=== PATIENT | female | born 1965 | race Caucasian/White ===

== ENCOUNTER 2017-11-05 18:48 | Emergency (ER) | payer OTHER ==
[~2017-11-05] VITALS: Ht 160 cm; Wt 106.6 kg
[~2017-11-05 18:48] MED LIST: AZAT50 PO; AZIT500 PO; Aspir 8181 MG PO; BASAGLAR K100 UNIT/1 SC; CHOL10002 PO; Colace100 MG PO; HYDPAM25 PO; Humalog100 UNIT/1 SC; INSDET100; LIRA0.6P SC; LISI5 PO; MAGOXI400 PO; METO50ER PO; PRED20 PO; PROM25 PO; Percocet 5-3251 EACH PO; Protonix40 MG PO; ROBITUSSIN COU237 ML PO; ROXICODONE5 MG PO; SERT100 PO; TACR1 PO; TEMA15 PO
[2017-11-05 22:15] LABS: BASOPHILS ABSOLUTE AUTO 0.02 K/mm3 (0.00-0.23); BASOPHILS PERCENT AUTO 0 % (0-2); EOSINOPHILS ABSOLUTE AUTO 0.05 K/mm3 (0.00-0.68); EOSINOPHILS PERCENT AUTO 1 % (0-6); Hematocrit 40.3 % (33.0-51.0); Hemoglobin 13.2 g/dL (11.5-16.0); IMMATURE GRAN ABSOLUTE AUTO 0.04 K/mm3 (0.00-0.10); IMMATURE GRAN PERCENT AUTO 1 % (0-1); LYMPHOCYTES ABSOLUTE AUTO 0.82 K/mm3 (0.84-5.20); LYMPHOCYTES PERCENT AUTO 10 % (21-46); MONOCYTES ABSOLUTE AUTO 0.39 K/mm3 (0.16-1.47); MONOCYTES PERCENT AUTO 5 % (4-13); Mean Corpuscular HGB 33.8 pg (26.0-34.0); Mean Corpuscular HGB Conc 32.8 g/dL (31.5-36.5); Mean Corpuscular Volume 103 fL (80-100); NEUTROPHILS PERCENT AUTO 84 % (41-73); Platelet Count 253 K/mm3 (150-400); RDW Coefficient Variation 15.2 % (11.7-14.2); RDW Standard Deviation 57.7 fL (35.1-46.3); White Blood Cell Count 8.22 K/mm3 (4.00-11.30)
[2017-11-05 22:34] LABS: Albumin, Blood 3.7 g/dL (3.4-5.0); Albumin/Globulin Ratio 0.8 (0.8-1.8); Bilirubin, Total 0.3 mg/dL (0.1-1.0); Bun/Creatinine Ratio 31.2 (12.0-20.0); Calcium, Blood 9.3 mg/dL (8.5-10.1); Creatinine, Blood 1.12 mg/dL (0.40-1.00); Globulin, Blood 4.4 g/dL (2.2-4.0); Potassium, Blood 4.5 mmol/L (3.5-5.5); Total Protein, Blood 8.1 g/dL (6.4-8.2)
[2017-11-05] MEDS ORDERED: Roxicodone5 MG PO (23:06)
[2017-11-05] MEDS ORDERED: Robaxin-750750 MG PO (23:06)
== END 2017-11-05 23:37 | disposition home or self-care (01) ==
LOC: ER 18:48
PROVIDERS: Emergency Medicine
DX: S16.1XXA Strain of muscle, fascia and tendon at neck level, initial encounter (principal); R10.9 Unspecified abdominal pain; E11.22 Type 2 diabetes mellitus with diabetic chronic kidney disease; E11.65 Type 2 diabetes mellitus with hyperglycemia; I12.9 Hypertensive chronic kidney disease with stage 1 through stage 4 chronic kidney disease, or unspecified chronic kidney disease; N18.9 Chronic kidney disease, unspecified; Z88.8 Allergy status to other drugs, medicaments and biological substances; E04.1 Nontoxic single thyroid nodule; Z88.6 Allergy status to analgesic agent; Z79.899 Other long term (current) drug therapy; Z79.4 Long term (current) use of insulin; Z79.82 Long term (current) use of aspirin; Z79.2 Long term (current) use of antibiotics; X50.9XXA Other and unspecified overexertion or strenuous movements or postures, initial encounter
CPT/HCPCS: 36415; 76536; 76705; 80053; 85025; 99284; J3010

== ENCOUNTER 2017-11-26 15:47 | Emergency (ER) | payer OTHER ==
[~2017-11-26] VITALS: Ht 162.6 cm; Wt 104.3 kg
[~2017-11-26 15:47] MED LIST changes: +Robaxin-750750 MG PO; +Roxicodone5 MG PO
[2017-11-26 17:07] LABS: BASOPHILS ABSOLUTE AUTO 0.04 K/mm3 (0.00-0.23); BASOPHILS PERCENT AUTO 1 % (0-2); EOSINOPHILS ABSOLUTE AUTO 0.17 K/mm3 (0.00-0.68); EOSINOPHILS PERCENT AUTO 3 % (0-6); Hemoglobin 13.1 g/dL (11.5-16.0); IMMATURE GRAN ABSOLUTE AUTO 0.01 K/mm3 (0.00-0.10); IMMATURE GRAN PERCENT AUTO 0 % (0-1); LYMPHOCYTES ABSOLUTE AUTO 1.53 K/mm3 (0.84-5.20); LYMPHOCYTES PERCENT AUTO 26 % (21-46); MONOCYTES ABSOLUTE AUTO 0.52 K/mm3 (0.16-1.47); MONOCYTES PERCENT AUTO 9 % (4-13); Mean Corpuscular HGB 33.6 pg (26.0-34.0); Mean Corpuscular HGB Conc 32.8 g/dL (31.5-36.5); Mean Corpuscular Volume 103 fL (80-100); Mean Platelet Volume 9.3 fL (9.1-12.4); NEUTROPHILS ABSOLUTE AUTO 3.73 K/mm3 (1.96-9.15); NEUTROPHILS PERCENT AUTO 62 % (41-73); Platelet Count 295 K/mm3 (150-400); RDW Coefficient Variation 15.7 % (11.7-14.2); RDW Standard Deviation 58.9 fL (35.1-46.3)
[2017-11-26 17:11] LABS: Source, Urine Clean Catch
[2017-11-26 17:21] LABS: Appearance, Urine Clear (Clear); Bilirubin, Urine Neg (Neg); Blood, Urine Neg (Neg); Color, Urine Yellow (P-Yellow); Glucose Qualitative, Urine Neg (Neg); Ketones, Urine Neg (Neg); Leukocyte Esterase, Urine Neg (Neg); Nitrite, Urine Neg (Neg); Protein, Urine Neg (Neg); Specific Gravity, Urine 1.015 (1.003-1.022); Urobilinogen, Urine NORM (Normal)
[2017-11-26 17:25] LABS: Albumin, Blood 3.5 g/dL (3.4-5.0); Albumin/Globulin Ratio 0.9 (0.8-1.8); Bilirubin, Total 0.2 mg/dL (0.1-1.0); Bun/Creatinine Ratio 21.6 (12.0-20.0); Calcium, Blood 9.3 mg/dL (8.5-10.1); Creatinine, Blood 1.11 mg/dL (0.40-1.00); Globulin, Blood 3.8 g/dL (2.2-4.0); Potassium, Blood 4.6 mmol/L (3.5-5.5); Total Protein, Blood 7.3 g/dL (6.4-8.2)
[2017-11-26] MEDS ORDERED: Robaxin-750750 MG PO (18:29)
== END 2017-11-26 19:18 | disposition home or self-care (01) ==
LOC: ER 15:47
PROVIDERS: Emergency Medicine
DX: R10.31 Right lower quadrant pain (principal); G89.29 Other chronic pain; M54.41 Lumbago with sciatica, right side; N20.0 Calculus of kidney; R16.2 Hepatomegaly with splenomegaly, not elsewhere classified; E11.9 Type 2 diabetes mellitus without complications; I10 Essential (primary) hypertension; F17.200 Nicotine dependence, unspecified, uncomplicated; Z88.8 Allergy status to other drugs, medicaments and biological substances; Z88.6 Allergy status to analgesic agent; Z79.52 Long term (current) use of systemic steroids; Z79.4 Long term (current) use of insulin; Z79.82 Long term (current) use of aspirin
CPT/HCPCS: 36415; 74177; 80053; 81003; 83690; 85025; 96361; 96374; 96376; 99284; J3010; J7030; Q9967

== ENCOUNTER 2018-05-29 14:16 | Emergency (ER) | payer MEDICARE, OTHER ==
[~2018-05-29] VITALS: Ht 162.6 cm; Wt 59.0 kg
== END 2018-05-29 15:48 | disposition home or self-care (01) ==
LOC: ER 14:16
DX: S30.1XXA Contusion of abdominal wall, initial encounter (principal); E11.9 Type 2 diabetes mellitus without complications; I10 Essential (primary) hypertension; F17.200 Nicotine dependence, unspecified, uncomplicated; Z88.8 Allergy status to other drugs, medicaments and biological substances; Z88.6 Allergy status to analgesic agent; Z79.899 Other long term (current) drug therapy; Z79.4 Long term (current) use of insulin; Z79.52 Long term (current) use of systemic steroids; Z79.82 Long term (current) use of aspirin; W22.8XXA Striking against or struck by other objects, initial encounter
CPT/HCPCS: 74018; 99284-25

== ENCOUNTER 2018-11-23 20:10 | Emergency (ER) | payer MEDICARE ==
[~2018-11-23] VITALS: Ht 162.6 cm; Wt 108.9 kg
[2018-11-23 22:04] LABS: Source, Urine Clean Catch
[2018-11-23 22:08] LABS: BASOPHILS ABSOLUTE AUTO 0.03 K/mm3 (0.00-0.23); BASOPHILS PERCENT AUTO 1 % (0-2); EOSINOPHILS ABSOLUTE AUTO 0.09 K/mm3 (0.00-0.68); EOSINOPHILS PERCENT AUTO 2 % (0-6); Hematocrit 41.4 % (33.0-51.0); Hemoglobin 13.8 g/dL (11.5-16.0); IMMATURE GRAN ABSOLUTE AUTO 0.03 K/mm3 (0.00-0.10); IMMATURE GRAN PERCENT AUTO 1 % (0-1); LYMPHOCYTES ABSOLUTE AUTO 0.79 K/mm3 (0.84-5.20); LYMPHOCYTES PERCENT AUTO 13 % (21-46); MONOCYTES PERCENT AUTO 7 % (4-13); Mean Corpuscular HGB 37.8 pg (26.0-34.0); Mean Corpuscular HGB Conc 33.3 g/dL (31.5-36.5); Mean Corpuscular Volume 113 fL (80-100); Mean Platelet Volume 9.9 fL (9.1-12.4); NEUTROPHILS ABSOLUTE AUTO 4.72 K/mm3 (1.96-9.15); NEUTROPHILS PERCENT AUTO 78 % (41-73); Platelet Count 292 K/mm3 (150-400); RDW Coefficient Variation 14.4 % (11.7-14.2); Red Blood Cell Count 3.65 M/mm3 (3.80-5.20); White Blood Cell Count 6.06 K/mm3 (4.00-11.30)
[2018-11-23 22:23] LABS: Bilirubin, Urine Neg (Neg); Blood, Urine 1+ (Neg); Glucose Qualitative, Urine 2+ (Neg); Ketones, Urine Neg (Neg); Leukocyte Esterase, Urine 1+ (Neg); Nitrite, Urine Neg (Neg); Protein, Urine 2+ (Neg); Specific Gravity, Urine 1.015 (1.003-1.022); Urobilinogen, Urine NORM (Normal)
[2018-11-23 22:27] LABS: Albumin, Blood 3.9 g/dL (3.4-5.0); Bilirubin, Total 0.4 mg/dL (0.1-1.0); Bun/Creatinine Ratio 41.1 (12.0-20.0); Calcium, Blood 9.2 mg/dL (8.5-10.1); Creatinine, Blood 1.12 mg/dL (0.40-1.00); Globulin, Blood 3.9 g/dL (2.2-4.0); Potassium, Blood 4.8 mmol/L (3.5-5.5); Total Protein, Blood 7.8 g/dL (6.4-8.2)
[2018-11-23 22:29] LABS: Appearance, Urine Hazy (Clear); Color, Urine Yellow (P-Yellow)
[2018-11-23 22:30] LABS: Bacteria Many /hpf; Squamous Epithelial Cells Many /hpf (Few)
== END 2018-11-24 01:18 | disposition left against medical advice (07) ==
LOC: ER 20:10
PROVIDERS: Physician Assistant
DX: E11.65 Type 2 diabetes mellitus with hyperglycemia (principal); R53.1 Weakness; Z88.8 Allergy status to other drugs, medicaments and biological substances; Z88.6 Allergy status to analgesic agent; Z79.52 Long term (current) use of systemic steroids; Z79.899 Other long term (current) drug therapy; Z79.4 Long term (current) use of insulin; Z79.82 Long term (current) use of aspirin; I10 Essential (primary) hypertension; F17.200 Nicotine dependence, unspecified, uncomplicated
CPT/HCPCS: 36415; 80053; 81001; 85025; 87086; 99283-25

== ENCOUNTER 2018-12-12 17:28 | Emergency (ER) | payer MEDICARE, OTHER ==
[~2018-12-12] VITALS: Ht 162.6 cm; Wt 108.9 kg
[2018-12-12 18:08] LABS: Source, Urine Clean Catch
[2018-12-12 18:12] LABS: Appearance, Urine Clear (Clear); Bilirubin, Urine Neg (Neg); Blood, Urine 2+ (Neg); Color, Urine Yellow (P-Yellow); Glucose Qualitative, Urine 2+ (Neg); Ketones, Urine Neg (Neg); Leukocyte Esterase, Urine Neg (Neg); Nitrite, Urine Neg (Neg); Protein, Urine 2+ (Neg); Urobilinogen, Urine NORM (Normal)
[2018-12-12 18:35] LABS: Bacteria Few /hpf; Squamous Epithelial Cells Many /hpf (Few); White Blood Cells, Urine 0-2 /hpf (0-5)
[2018-12-12 19:26] LABS: BASOPHILS ABSOLUTE AUTO 0.04 K/mm3 (0.00-0.23); BASOPHILS PERCENT AUTO 1 % (0-2); EOSINOPHILS ABSOLUTE AUTO 0.17 K/mm3 (0.00-0.68); EOSINOPHILS PERCENT AUTO 2 % (0-6); Hematocrit 44.7 % (33.0-51.0); Hemoglobin 15.2 g/dL (11.5-16.0); IMMATURE GRAN ABSOLUTE AUTO 0.03 K/mm3 (0.00-0.10); IMMATURE GRAN PERCENT AUTO 0 % (0-1); LYMPHOCYTES ABSOLUTE AUTO 1.11 K/mm3 (0.84-5.20); LYMPHOCYTES PERCENT AUTO 15 % (21-46); MONOCYTES ABSOLUTE AUTO 0.39 K/mm3 (0.16-1.47); MONOCYTES PERCENT AUTO 5 % (4-13); Mean Corpuscular HGB 36.7 pg (26.0-34.0); Mean Corpuscular Volume 108 fL (80-100); Mean Platelet Volume 9.7 fL (9.1-12.4); NEUTROPHILS PERCENT AUTO 77 % (41-73); Platelet Count 297 K/mm3 (150-400); RDW Coefficient Variation 14.4 % (11.7-14.2); Red Blood Cell Count 4.14 M/mm3 (3.80-5.20); White Blood Cell Count 7.44 K/mm3 (4.00-11.30)
[2018-12-12 20:03] LABS: Alanine Aminotransfer (ALT/SGP 25 U/L (12-78); Albumin, Blood 4.1 g/dL (3.4-5.0); Alk Phos 81 U/L (50-136); Anion Gap 8 mmol/L (6-16); Aspartate Aminotrans (AST/SGOT 17 U/L (12-37); Bilirubin, Total 0.3 mg/dL (0.1-1.0); Blood Urea Nitrogen 39 mg/dL (8-24); Bun/Creatinine Ratio 34.2 (12.0-20.0); CO2, Blood 23 mmol/L (21-32); Calcium, Blood 9.2 mg/dL (8.5-10.1); Chloride, Blood 105 mmol/L (98-108); Creatinine, Blood 1.14 mg/dL (0.40-1.00); Globulin, Blood 4.2 g/dL (2.2-4.0); Glomerular Filtration Rate 53 (60-); Glucose, Blood 262 mg/dL (70-99); Potassium, Blood 4.6 mmol/L (3.5-5.5); Sodium, Blood 136 mmol/L (136-145); Total Protein, Blood 8.3 g/dL (6.4-8.2); Troponin I <0.015 ng/mL (0.000-0.040)
== END 2018-12-12 22:01 | disposition home or self-care (01) ==
LOC: ER 17:28
PROVIDERS: Emergency Medicine; Physician Assistant
DX: R10.10 Upper abdominal pain, unspecified (principal); E11.9 Type 2 diabetes mellitus without complications; I10 Essential (primary) hypertension; F17.200 Nicotine dependence, unspecified, uncomplicated; Z88.6 Allergy status to analgesic agent; Z88.5 Allergy status to narcotic agent; Z79.4 Long term (current) use of insulin; Z79.899 Other long term (current) drug therapy
CPT/HCPCS: 36415; 80053; 81001; 83690; 84484; 85025; 93005; 93010; 96374; 99284-25; J1170

== ENCOUNTER → 2019-02-22 | Outpatient (CLI) | payer MEDICARE ==
[2019-02-22 18:09] LABS: Appearance, Urine Clear (Clear); Bilirubin, Urine Neg (Neg); Blood, Urine 1+ (Neg); Color, Urine Yellow (P-Yellow); Glucose Qualitative, Urine 2+ (Neg); Ketones, Urine Neg (Neg); Leukocyte Esterase, Urine 1+ (Neg); Nitrite, Urine Neg (Neg); Protein, Urine 3+ (Neg); Urobilinogen, Urine 1+ (Normal)
[2019-02-22 18:37] LABS: Red Blood Cells, Urine 0-2 /hpf (0-2)
[2019-02-22 18:38] LABS: Bacteria Mod /hpf; Hyaline Casts Rare /lpf (0-2); Squamous Epithelial Cells Rare /hpf (Few)
== END | disposition home or self-care (01) ==
LOC: LAB 17:53 → LAB SHORT 17:53
PROVIDERS: Emergency Medicine
DX: R30.0 Dysuria (principal)
CPT/HCPCS: 81001; 87086

== ENCOUNTER → 2019-03-21 | Outpatient (CLI) | payer MEDICARE ==
[2019-03-21 18:54] LABS: Protein, Urine Random 82.8 mg/dL (0.0-11.9); Protein/Creat Ratio, Ur Random 0.4
== END ==
LOC: LAB SHORT 17:34 → LAB 17:34
PROVIDERS: Internal Medicine Nephrology
DX: Z48.22 Encounter for aftercare following kidney transplant (principal); R80.9 Proteinuria, unspecified
CPT/HCPCS: 82570; 84156

== ENCOUNTER → 2019-04-16 | Outpatient (CLI) | payer MEDICARE ==
[2019-04-16 12:40] LABS: Adenovirus F 40/41 Not Detected (NOT DETECT); Astrovirus Not Detected (NOT DETECT); Campylobacter Sp Detected (NOT DETECT); Cryptosporidium Not Detected (NOT DETECT); Cyclospora Cayetanensis Not Detected (NOT DETECT); E. Coli O157 Not Detected (NOT DETECT); Entamoeba Histolytica Not Detected (NOT DETECT); Enteroaggregative E. coli-EAEC Not Detected (NOT DETECT); Enteropathogenic E. coli-EPEC Not Detected (NOT DETECT); Enterotoxigenic E. coli-ETEC Not Detected (NOT DETECT); Giardia Lamblia Not Detected (NOT DETECT); Norovirus GI/GII Not Detected (NOT DETECT); Plesiomonas Shigelloides Not Detected (NOT DETECT); Rotavirus A Not Detected (NOT DETECT); Salmonella Sp Not Detected (NOT DETECT); Sapovirus Not Detected (NOT DETECT); Shiga Toxin-prod E. coli-STEC Not Detected (NOT DETECT); Shigella/Enteroin E. coli-EIEC Not Detected (NOT DETECT); Vibrio Cholerae Not Detected (NOT DETECT); Vibrio Sp Not Detected (NOT DETECT); Yersinia Enterocolitica Not Detected (NOT DETECT)
== END | disposition home or self-care (01) ==
LOC: LAB SHORT 08:00 → LAB UCHC 08:00
DX: R19.7 Diarrhea, unspecified (principal)
CPT/HCPCS: 0097U

== ENCOUNTER → 2019-07-01 | Outpatient (CLI) | payer MEDICARE | LOC: PLD 08:06 → LAB SHORT 08:06 | DX: N71.9 Inflammatory disease of uterus, unspecified (principal) | CPT/HCPCS: 88305 ==

== ENCOUNTER 2020-04-28 13:38 | Inpatient (IN) | payer MEDICARE ==
[~2020-04-28] VITALS: Ht 162.6 cm; Wt 90.5 kg
[~2020-04-28 13:38] MED LIST changes: -AZAT50 PO; -Aspir 8181 MG PO; -CHOL10002 PO; -Colace100 MG PO; -Humalog100 UNIT/1 SC; -LISI5 PO; -MAGOXI400 PO; -METO50ER PO; -PRED20 PO; -PROM25 PO; -Protonix40 MG PO
[2020-04-28 14:18] LABS: BASOPHILS ABSOLUTE AUTO 0.04 K/mm3 (0.00-0.23); BASOPHILS PERCENT AUTO 1 % (0-2); EOSINOPHILS ABSOLUTE AUTO 0.41 K/mm3 (0.00-0.68); EOSINOPHILS PERCENT AUTO 5 % (0-6); Hematocrit 37.9 % (33.0-51.0); Hemoglobin 12.4 g/dL (11.5-16.0); IMMATURE GRAN ABSOLUTE AUTO 0.02 K/mm3 (0.00-0.10); IMMATURE GRAN PERCENT AUTO 0 % (0-1); LYMPHOCYTES ABSOLUTE AUTO 0.97 K/mm3 (0.84-5.20); LYMPHOCYTES PERCENT AUTO 13 % (21-46); MONOCYTES ABSOLUTE AUTO 0.47 K/mm3 (0.16-1.47); MONOCYTES PERCENT AUTO 6 % (4-13); Mean Corpuscular HGB 35.2 pg (26.0-34.0); Mean Corpuscular HGB Conc 32.7 g/dL (31.5-36.5); Mean Corpuscular Volume 108 fL (80-100); Mean Platelet Volume 10.3 fL (9.1-12.4); NEUTROPHILS ABSOLUTE AUTO 5.73 K/mm3 (1.96-9.15); NEUTROPHILS PERCENT AUTO 75 % (41-73); Platelet Count 255 K/mm3 (150-400); RDW Coefficient Variation 13.9 % (11.7-14.2); RDW Standard Deviation 54.6 fL (35.1-46.3); Red Blood Cell Count 3.52 M/mm3 (3.80-5.20); White Blood Cell Count 7.64 K/mm3 (4.00-11.30)
[2020-04-28 14:27] LABS: Source, Urine Clean Catch
[2020-04-28 14:36] LABS: Appearance, Urine Clear (Clear); Bilirubin, Urine Neg (Neg); Blood, Urine 2+ (Neg); Color, Urine Yellow (P-Yellow); Glucose Qualitative, Urine 4+ (Neg); Ketones, Urine Neg (Neg); Leukocyte Esterase, Urine 2+ (Neg); Nitrite, Urine Neg (Neg); Protein, Urine 1+ (Neg); Urobilinogen, Urine NORM (Normal)
[2020-04-28 14:41] LABS: Bacteria Few /hpf; Red Blood Cells, Urine Rare /hpf (0-2); Squamous Epithelial Cells Not Seen /hpf (Few)
[2020-04-28 15:49] LABS: Alanine Aminotransfer (ALT/SGP 17 U/L (12-78); Albumin, Blood 3.1 g/dL (3.4-5.0); Albumin/Globulin Ratio 0.7 (0.8-1.8); Alk Phos 64 U/L (50-136); Anion Gap 5 mmol/L (6-16); Aspartate Aminotrans (AST/SGOT 20 U/L (12-37); Bilirubin, Total 0.4 mg/dL (0.1-1.0); Blood Urea Nitrogen 18 mg/dL (8-24); Bun/Creatinine Ratio 13.2 (12.0-20.0); CO2, Blood 26 mmol/L (21-32); Calcium, Blood 9.1 mg/dL (8.5-10.1); Chloride, Blood 106 mmol/L (98-108); Creatinine, Blood 1.36 mg/dL (0.40-1.00); Globulin, Blood 4.4 g/dL (2.2-4.0); Glomerular Filtration Rate 43 (60-); Glucose, Blood 352 mg/dL (70-99); Potassium, Blood 4.9 mmol/L (3.5-5.5); Sodium, Blood 137 mmol/L (136-145); Total Protein, Blood 7.5 g/dL (6.4-8.2); Troponin I <0.015 ng/mL (0.000-0.040)
[2020-04-28] MEDS ORDERED: Methocarbamol500 MG PO (16:54)
[2020-04-28] MEDS ORDERED: NEURONTIN300 MG PO ×2 (16:55→17:28)
[2020-04-28] MEDS ORDERED: AZAT50 PO (16:56)
[2020-04-28] MEDS ORDERED: Prinivil10 MG PO (16:56)
[2020-04-28] MEDS ORDERED: METO100ER PO (16:57)
[2020-04-28] MEDS ORDERED: EZET10 PO (16:58)
[2020-04-28] MEDS ORDERED: TACR1 PO (16:58)
[2020-04-28] MEDS ORDERED: Protonix40 MG PO (16:59)
[2020-04-28] MEDS ORDERED: METO50ER PO (17:28)
[2020-04-28] MEDS ORDERED: PRED5 PO (17:31)
[2020-04-28] MEDS ORDERED: HUMALOG100 UNIT/1 SC (17:33)
[2020-04-28] MEDS ORDERED: VITAMIN D325 MC3 PO (17:33)
[2020-04-28] MEDS ORDERED: Aspir 8181 MG PO (17:33)
[2020-04-28] MEDS ORDERED: MAGOXI400 PO (17:34)
[2020-04-28] MEDS ORDERED: PROM25 PO (17:34)
[2020-04-28] MEDS ORDERED: MULTI-VITAMIN1 EAC2 PO (17:38)
[2020-04-28] MEDS ORDERED: VICTOZA 2-0.6 MG/0.1 SC (17:40)
[2020-04-28] MEDS ORDERED: Colace100 MG PO (17:41)
[2020-04-28] MEDS ORDERED: DOCUZEN 8.6-501 EACH PO (17:41)
--- NOTE | 2020-04-29 04:37 | NUR ---
SHIFT SUMMARY PT NEW ED ADMIT THIS EVENING. ADMIT DIAGNOSIS PYELONEPHRITIS. PT HAVING R UPPER ABD/FLANK PAIN. WORSE WITH MOVEMENT. SOME NAUSEA ASSOCIATED WITH IT WITH NO EPISODES OF EMESIS. MEDICATED THROUGHOUT THE NIGHT WITH 10 MG ROXICODONE AND BOTH IV COMPAZINE AND PO PHENERGAN. PT HAS HX OF KIDNEY AND LIVER TRANSPLANT. TAKES ANTI REJECTION MEDICATIONS. PT SLEPT OFF AND ON. PAIN TOLERABLE AFTER MEDICATED AND WHILE LYING STILL IN BED. TELEMETRY ON READING SR 71 THIS EVENING. PT IS A CURRENT EVERY DAY SMOKER BUT DID NOT LEAVE HER ROOM TONIGHT. CPAP ON FOR A SHORT PERIOD OF TIME THIS EVENING. OTHERWISE ON RA. PT RESTING IN BED AT THIS TIME. VSS. WILL CONTINUE TO MONITOR AND REPORT TO DAY RN.
[2020-04-29 05:55] LABS: BASOPHILS ABSOLUTE AUTO 0.05 K/mm3 (0.00-0.23); BASOPHILS PERCENT AUTO 1 % (0-2); EOSINOPHILS ABSOLUTE AUTO 0.44 K/mm3 (0.00-0.68); EOSINOPHILS PERCENT AUTO 6 % (0-6); Hematocrit 35.1 % (33.0-51.0); Hemoglobin 11.7 g/dL (11.5-16.0); IMMATURE GRAN ABSOLUTE AUTO 0.03 K/mm3 (0.00-0.10); IMMATURE GRAN PERCENT AUTO 0 % (0-1); LYMPHOCYTES ABSOLUTE AUTO 0.97 K/mm3 (0.84-5.20); LYMPHOCYTES PERCENT AUTO 14 % (21-46); MONOCYTES ABSOLUTE AUTO 0.54 K/mm3 (0.16-1.47); MONOCYTES PERCENT AUTO 8 % (4-13); Mean Corpuscular HGB 36.1 pg (26.0-34.0); Mean Corpuscular HGB Conc 33.3 g/dL (31.5-36.5); Mean Corpuscular Volume 108 fL (80-100); Mean Platelet Volume 10.1 fL (9.1-12.4); NEUTROPHILS PERCENT AUTO 71 % (41-73); Platelet Count 225 K/mm3 (150-400); RDW Coefficient Variation 13.5 % (11.7-14.2); RDW Standard Deviation 54.3 fL (35.1-46.3); Red Blood Cell Count 3.24 M/mm3 (3.80-5.20); White Blood Cell Count 7.03 K/mm3 (4.00-11.30)
[2020-04-29 06:13] LABS: Albumin, Blood 2.8 g/dL (3.4-5.0); Anion Gap 3 mmol/L (6-16); Blood Urea Nitrogen 24 mg/dL (8-24); Bun/Creatinine Ratio 15.5 (12.0-20.0); CO2, Blood 32 mmol/L (21-32); Calcium, Blood 9.1 mg/dL (8.5-10.1); Chloride, Blood 104 mmol/L (98-108); Creatinine, Blood 1.55 mg/dL (0.40-1.00); Glomerular Filtration Rate 37 (60-); Glucose, Blood 250 mg/dL (70-99); Phosphorus, Blood 4.1 mg/dL (2.5-4.9); Potassium, Blood 4.4 mmol/L (3.5-5.5); Sodium, Blood 139 mmol/L (136-145)
--- NOTE | 2020-04-29 18:11 | NUR ---
SHIFT SUMMARY ALERT AND ORIENTED PT WITH CONTROLLED RIGHT FLANK PAIN. REPORTS TOLERABLE PAIN LEVEL OF 4/10, GIVEN ONE DOSE OF PRN PAIN MED THIS AM AND HAS DECLINED OTHER MEASURES. LOW GRADE TEMPS OF 99'SF. SELF REPOSITIONING, AND ADL'S. STABLE GAIT WITHOUT ASSISTIVE DEVICE. BLOOD GLUCOSE RUNNING >200, PT REPORTS TAKING 20-30 UNITS SHORT ACTING INSULIN WITH MEALS. MD NOTIFIED AND 10UNITS SCHEDULED INSULIN ADDED TO TIDAC SLIDING SCALE ORDERS. TOLERATING DIET. BED IN LOWEST POSITION. CALL LIGHT IN REACH. POSSIBLE D/C 04/30 DEPENDING ON KIDNEY FX. GOOD UO, SEE I/O.
--- NOTE | 2020-04-29 19:05 | NUR ---
ASSUMED CARE RECEIVED REPORT FROM GITA ANDRADE. ASSUMED CARE OF PT. NO S/S ACUTE DISTRESS NOTED. ASLEEP AT THIS TIME. CALL LIGHT, POSSESSIONS IN REACH. WILL CONTINUE TO MONITOR.
--- NOTE | 2020-04-30 02:22 | NUR ---
[address] COLÓN REGARDING PT'S REPEATED LOOSE STOOLS. ORDERS RECEIVED.
[2020-04-30 05:14] LABS: BASOPHILS ABSOLUTE AUTO 0.04 K/mm3 (0.00-0.23); BASOPHILS PERCENT AUTO 1 % (0-2); EOSINOPHILS ABSOLUTE AUTO 0.51 K/mm3 (0.00-0.68); EOSINOPHILS PERCENT AUTO 7 % (0-6); Hematocrit 33.9 % (33.0-51.0); Hemoglobin 11.3 g/dL (11.5-16.0); IMMATURE GRAN ABSOLUTE AUTO 0.04 K/mm3 (0.00-0.10); IMMATURE GRAN PERCENT AUTO 1 % (0-1); LYMPHOCYTES ABSOLUTE AUTO 1.31 K/mm3 (0.84-5.20); LYMPHOCYTES PERCENT AUTO 17 % (21-46); MONOCYTES PERCENT AUTO 6 % (4-13); Mean Corpuscular HGB 35.4 pg (26.0-34.0); Mean Corpuscular HGB Conc 33.3 g/dL (31.5-36.5); Mean Corpuscular Volume 106 fL (80-100); Mean Platelet Volume 9.9 fL (9.1-12.4); NEUTROPHILS ABSOLUTE AUTO 5.47 K/mm3 (1.96-9.15); NEUTROPHILS PERCENT AUTO 70 % (41-73); Platelet Count 253 K/mm3 (150-400); RDW Coefficient Variation 13.3 % (11.7-14.2); RDW Standard Deviation 52.1 fL (35.1-46.3); Red Blood Cell Count 3.19 M/mm3 (3.80-5.20); White Blood Cell Count 7.87 K/mm3 (4.00-11.30)
[2020-04-30 05:47] LABS: Albumin, Blood 2.8 g/dL (3.4-5.0); Anion Gap 7 mmol/L (6-16); Blood Urea Nitrogen 28 mg/dL (8-24); Bun/Creatinine Ratio 18.3 (12.0-20.0); CO2, Blood 24 mmol/L (21-32); Calcium, Blood 9.4 mg/dL (8.5-10.1); Chloride, Blood 106 mmol/L (98-108); Creatinine, Blood 1.53 mg/dL (0.40-1.00); Glomerular Filtration Rate 37 (60-); Glucose, Blood 219 mg/dL (70-99); Phosphorus, Blood 3.6 mg/dL (2.5-4.9); Potassium, Blood 4.9 mmol/L (3.5-5.5); Sodium, Blood 137 mmol/L (136-145)
--- NOTE | 2020-04-30 06:45 | NUR ---
SHIFT SUMMARY NO ACUTE EVENTS NOTED T/O FIRST HALF OF SHIFT, PT UP WALKING AROUND UNIT, OUTSIDE TO SMOKE. REMINDED PT TO TELL STAFF THAT SHE'S LEAVING PRIOR TO EXITING THE FLOOR, INDICATED UNDERSTANDING. HAD A ROUGH REST OF THE EVENING UPON RETURNING FROM HER WALK, WITH MULTIPLE EPISODES OF LOOSE STOOLS. STOOL SAMPLE SENT TO LAB. SPOKE TO DR. COLÓN REGARDING PT'S CONTINUED LOOSE STOOLS, NO NEW ORDERS RECEIVED, AWAITING STOOL CULTURE RESULTS. PT RESTING, THEN UP AMBULATING IN [place]. REPORTED OFF TO DAY RN.
--- NOTE | 2020-04-30 19:02 | NUR ---
PT REPORTS DIARRHEA IMPROVED, MOSTLY GAS THIS AFTERNOON, REFUSING IMMODIUM WHEN OFFERED, VOIDING WITHOUT DIFFICULTY T/O THE SHIFT. SHE IS HOPING TO GO HOME TOMORROW. NO ACUTE CHANGES NOTED, WILL CONTINUE TO MONITOR AND REPORT TO ONCOMING RN
--- NOTE | 2020-04-30 19:10 | NUR ---
ASSUMED CARE RECEIVED REPORT FROM GITA ALBARADO. ASSUMED CARE OF PT. RESTING COMFORTABLY AT THIS TIME, NO S/S ACUTE DISTRESS NOTED. DENIES NEEDS. CALL LIGHT, POSSESSIONS IN REACH. REMINDED TO LET STAFF KNOW BEFORE SHE LEAVES THE UNIT, INDICATED UNDERSTANDING. WILL CONTINUE TO MONITOR.
[2020-05-01 04:57] LABS: BASOPHILS ABSOLUTE AUTO 0.03 K/mm3 (0.00-0.23); BASOPHILS PERCENT AUTO 1 % (0-2); EOSINOPHILS ABSOLUTE AUTO 0.46 K/mm3 (0.00-0.68); EOSINOPHILS PERCENT AUTO 7 % (0-6); Hematocrit 37.4 % (33.0-51.0); Hemoglobin 12.3 g/dL (11.5-16.0); IMMATURE GRAN ABSOLUTE AUTO 0.03 K/mm3 (0.00-0.10); IMMATURE GRAN PERCENT AUTO 1 % (0-1); LYMPHOCYTES ABSOLUTE AUTO 1.13 K/mm3 (0.84-5.20); LYMPHOCYTES PERCENT AUTO 18 % (21-46); MONOCYTES ABSOLUTE AUTO 0.32 K/mm3 (0.16-1.47); MONOCYTES PERCENT AUTO 5 % (4-13); Mean Corpuscular HGB 35.1 pg (26.0-34.0); Mean Corpuscular HGB Conc 32.9 g/dL (31.5-36.5); Mean Corpuscular Volume 107 fL (80-100); Mean Platelet Volume 10.2 fL (9.1-12.4); NEUTROPHILS PERCENT AUTO 70 % (41-73); Platelet Count 296 K/mm3 (150-400); RDW Coefficient Variation 13.2 % (11.7-14.2); RDW Standard Deviation 52.4 fL (35.1-46.3); White Blood Cell Count 6.47 K/mm3 (4.00-11.30)
[2020-05-01 05:25] LABS: Anion Gap 8 mmol/L (6-16); Blood Urea Nitrogen 32 mg/dL (8-24); Bun/Creatinine Ratio 20.5 (12.0-20.0); CO2, Blood 22 mmol/L (21-32); Calcium, Blood 9.4 mg/dL (8.5-10.1); Chloride, Blood 105 mmol/L (98-108); Creatinine, Blood 1.56 mg/dL (0.40-1.00); Glomerular Filtration Rate 37 (60-); Glucose, Blood 362 mg/dL (70-99); Phosphorus, Blood 3.3 mg/dL (2.5-4.9); Potassium, Blood 4.5 mmol/L (3.5-5.5); Sodium, Blood 135 mmol/L (136-145)
--- NOTE | 2020-05-01 05:42 | NUR ---
SHIFT SUMMARY PT HAD A FEW EPISODES OF DIARRHEA ALONG WITH ABD CRAMPING T/O NIGHT, WELL NAUSEA. PT REPORTED THAT SHE HAS AN EXTENSIVE HX OF IBS, DISCUSSED WHAT PT DOES AT HOME TO MANAGE HER SX. PT STATED SHE USUALLY LETS THE DIARRHEA RUN ITS COURSE, SHE USUALLY BECOMES CONSTIPATED SOON AFTERWARDS. PT AGREEABLE TO PRN MEDICATIONS PER EMAR, MEDICATED ORDERED. THIS RN REMINDED PT THAT IF PT BEGINS FEELING ONSET OF CONSTIPATION, TO REPORT IT TO RN NEEDED. INDICATED UNDERSTANDING. ENCOURAGED PT TO DRINK GATORADE RATHER THAN SODA, TO MAINTAIN ELECTROLYTE BALANCE, PT COMPLIANT BUT CONTINUES TO DRINK HER SODA. OUT TO SMOKE A FEW TIMES DURING NIGHT, INFORMED STAFF APPROPRIATELY. PT APPEARS TO BE FEELING BETTER THIS AM, APPETITE IMPROVING. REQUESTED A SNACK, REPORTED IT SAT WELL WITH HER STOMACH. PT RESTING COMFORTABLY AT THIS TIME. DENIES NEEDS. CALL LIGHT, POSSESSIONS IN REACH, WILL CONTINUE TO MONITOR AND PROVIDE CARE NEEDED UNTIL DAY RN ASSUMES CARE.
--- NOTE | 2020-05-01 09:01 | NUR ---
ELEVATED BLOOD SUGAR CBG WITH RESULTS OF 440 THIS AM, PT STATES THAT SHE ALREADY ATE BEFORE CBG WAS TAKEN. 12 UNITS PER MEDIUM SLIDING SCALE AND 10 UNITS PER AC ORDERS FOR A TOTAL OF [address] SQ GIVEN. [address] RAYA INFORMED OF ABOVE, NO NEW ORDERS GIVEN.
[2020-05-01] MEDS ORDERED: Dicyclomine HCl10 MG PO (11:43)
[2020-05-01] MEDS ORDERED: LOPE2C PO (11:43)
[2020-05-01] MEDS ORDERED: LEVFLO500 PO (11:45)
[2020-05-01] MEDS ORDERED: LACTOBACILLUS1 EAC4 PO (11:45)
--- NOTE | 2020-05-01 13:56 | NUR ---
DISCHARGE DISCHARGE INSTRUCTIONS, MEDICATION LIST AND FOLLOW UP APPOINTMENT REVIEWED WITH PT. PCP APPOINT ON MonMay AT 1PM, NEW MEDS FAXED TO [facility] PER PT PREFERENCE. PT VERBALLY INDICATED UNDERSTANDING OF ALL INSTRUCTIONS RECEIVED, DENIED QUESTIONS. ESCORTED OUT TO RIDE
== END 2020-05-01 12:45 | disposition home or self-care (01) | DRG 698 ==
LOC: ER 13:38 → MEDS 17:53
PROVIDERS: Emergency Medicine; Nurse Practitioner Acute Care; Physician Assistant; ADMIT Internal Medicine
DX: T86.13 Kidney transplant infection (principal); I82.0 Budd-Chiari syndrome; N10 Acute pyelonephritis; Z94.4 Liver transplant status; K52.1 Toxic gastroenteritis and colitis; E11.40 Type 2 diabetes mellitus with diabetic neuropathy, unspecified; E78.5 Hyperlipidemia, unspecified; F17.210 Nicotine dependence, cigarettes, uncomplicated; I10 Essential (primary) hypertension; Z79.4 Long term (current) use of insulin; D89.9 Disorder involving the immune mechanism, unspecified; Z20.828 Contact with and (suspected) exposure to other viral communicable diseases
CPT/HCPCS: 36415; 74176; 80053; 80069; 81001; 82947; 83605; 83690; 83735; 84484; 85025; 87086; 87493; 93005; 93010; 94660; 94762; 96365; 96375; 99285-25; A9270-GY; J0696; J0780; J1170; J1815; J2270; J2405; J7030; J7500; J7507; J7512

== ENCOUNTER 2020-05-11 16:52 | Observation (INO) | payer MEDICARE ==
[~2020-05-11] VITALS: Ht 162.6 cm; Wt 91.2 kg
[~2020-05-11 16:52] MED LIST changes: +AZAT50 PO; +Aspir 8181 MG PO; +Colace100 MG PO; +DOCUZEN 8.6-501 EACH PO; +Dicyclomine HCl10 MG PO; +EZET10 PO; +HUMALOG100 UNIT/1 SC; +LACTOBACILLUS1 EAC4 PO; +LEVFLO500 PO; +LOPE2C PO; +MAGOXI400 PO; +METO100ER PO; +METO50ER PO; +MULTI-VITAMIN1 EAC2 PO; +Methocarbamol500 MG PO; +NEURONTIN300 MG PO; +PRED5 PO; +PROM25 PO; +Prinivil10 MG PO; +Protonix40 MG PO; +VICTOZA 2-0.6 MG/0.1 SC; +VITAMIN D325 MC3 PO
[2020-05-11 17:19] LABS: BASOPHILS ABSOLUTE AUTO 0.04 K/mm3 (0.00-0.23); BASOPHILS PERCENT AUTO 1 % (0-2); EOSINOPHILS ABSOLUTE AUTO 0.49 K/mm3 (0.00-0.68); EOSINOPHILS PERCENT AUTO 7 % (0-6); Hematocrit 36.9 % (33.0-51.0); Hemoglobin 12.1 g/dL (11.5-16.0); IMMATURE GRAN ABSOLUTE AUTO 0.03 K/mm3 (0.00-0.10); IMMATURE GRAN PERCENT AUTO 1 % (0-1); LYMPHOCYTES ABSOLUTE AUTO 1.97 K/mm3 (0.84-5.20); LYMPHOCYTES PERCENT AUTO 30 % (21-46); MONOCYTES PERCENT AUTO 8 % (4-13); Mean Corpuscular HGB 34.5 pg (26.0-34.0); Mean Corpuscular HGB Conc 32.8 g/dL (31.5-36.5); Mean Corpuscular Volume 105 fL (80-100); Mean Platelet Volume 9.1 fL (9.1-12.4); NEUTROPHILS ABSOLUTE AUTO 3.62 K/mm3 (1.96-9.15); NEUTROPHILS PERCENT AUTO 54 % (41-73); Platelet Count 335 K/mm3 (150-400); RDW Coefficient Variation 13.8 % (11.7-14.2); RDW Standard Deviation 52.8 fL (35.1-46.3); Red Blood Cell Count 3.51 M/mm3 (3.80-5.20); White Blood Cell Count 6.65 K/mm3 (4.00-11.30)
[2020-05-11 17:43] LABS: Troponin I <0.015 ng/mL (0.000-0.040)
[2020-05-11 17:44] LABS: Alanine Aminotransfer (ALT/SGP 15 U/L (12-78); Albumin, Blood 3.4 g/dL (3.4-5.0); Albumin/Globulin Ratio 0.9 (0.8-1.8); Alk Phos 60 U/L (50-136); Anion Gap 7 mmol/L (6-16); Aspartate Aminotrans (AST/SGOT 19 U/L (12-37); Bilirubin, Total 0.5 mg/dL (0.1-1.0); Blood Urea Nitrogen 45 mg/dL (8-24); Bun/Creatinine Ratio 27.8 (12.0-20.0); CO2, Blood 27 mmol/L (21-32); Calcium, Blood 9.5 mg/dL (8.5-10.1); Chloride, Blood 103 mmol/L (98-108); Creatinine, Blood 1.62 mg/dL (0.40-1.00); Ethanol (Alcohol), Blood, Med <3 mg/dL; Free Thyroxine 1.41 ng/dL (0.70-1.60); Globulin, Blood 3.8 g/dL (2.2-4.0); Glomerular Filtration Rate 35 (60-); Glucose, Blood 188 mg/dL (70-99); Salicylate <1.7 mg/dL (2.8-20.0); Sodium, Blood 137 mmol/L (136-145); Total Protein, Blood 7.2 g/dL (6.4-8.2)
[2020-05-11 17:52] LABS: Acetaminophen, Random <2.0 ug/mL (10.0-30.0)
[2020-05-11 18:29] LABS: Source, Urine Catheter
[2020-05-11 18:37] LABS: Appearance, Urine Hazy (Clear); Bilirubin, Urine Neg (Neg); Blood, Urine Neg (Neg); Color, Urine Yellow (P-Yellow); Glucose Qualitative, Urine 3+ (Neg); Ketones, Urine 1+ (Neg); Leukocyte Esterase, Urine 1+ (Neg); Nitrite, Urine Neg (Neg); Protein, Urine 1+ (Neg); Specific Gravity, Urine 1.015 (1.003-1.022); Urobilinogen, Urine NORM (Normal)
[2020-05-11 18:44] LABS: Bacteria Few /hpf; Calcium Oxalate Crystals Rare /hpf; Red Blood Cells, Urine 0-2 /hpf (0-2); Squamous Epithelial Cells Mod /hpf (Few); White Blood Cells, Urine 0-2 /hpf (0-5)
[2020-05-11 18:50] LABS: U Amphetamine Screen DETECTED; U Benzodiazapine Screen DETECTED; U Methamphetamine Screen DETECTED; U Oxycodone Screen DETECTED
[2020-05-11 18:51] LABS: U Barbituate Screen Not Detected; U Buprenorphine Screen Not Detected; U Cannabinoids Screen Not Detected; U Cocaine Screen Not Detected; U Methadone Screen Not Detected; U Opiates Screen Not Detected; U Phencyclidine Screen Not Detected; U Propoxyphene Screen Not Detected
[2020-05-11 18:51] LABS: Base Excess Venous 2.9 mmol/L; PCO2 Venous 35.4 mmHg (38-42); PO2 Venous 132 mmHg (38-42); pH Blood Venous 7.48 (7.34-7.37)
[2020-05-11] MEDS ORDERED: Prinivil10 MG PO (19:47)
[2020-05-11] MEDS ORDERED: MAGNESIUM250 MG PO (19:47)
[2020-05-11] MEDS ORDERED: CALCIUM CIT 311 EACH PO (19:50)
[2020-05-11] MEDS ORDERED: Vistaril25 MG PO (19:50)
[2020-05-11 20:47] LABS: Magnesium, Blood 2.1 mg/dL (1.6-2.4)
[2020-05-12 05:16] LABS: BASOPHILS ABSOLUTE AUTO 0.05 K/mm3 (0.00-0.23); BASOPHILS PERCENT AUTO 1 % (0-2); EOSINOPHILS ABSOLUTE AUTO 0.59 K/mm3 (0.00-0.68); EOSINOPHILS PERCENT AUTO 10 % (0-6); Hematocrit 33.6 % (33.0-51.0); Hemoglobin 11.2 g/dL (11.5-16.0); IMMATURE GRAN ABSOLUTE AUTO 0.01 K/mm3 (0.00-0.10); IMMATURE GRAN PERCENT AUTO 0 % (0-1); LYMPHOCYTES ABSOLUTE AUTO 1.91 K/mm3 (0.84-5.20); LYMPHOCYTES PERCENT AUTO 33 % (21-46); MONOCYTES PERCENT AUTO 7 % (4-13); Mean Corpuscular HGB 35.4 pg (26.0-34.0); Mean Corpuscular HGB Conc 33.3 g/dL (31.5-36.5); Mean Corpuscular Volume 106 fL (80-100); Mean Platelet Volume 9.3 fL (9.1-12.4); NEUTROPHILS ABSOLUTE AUTO 2.85 K/mm3 (1.96-9.15); NEUTROPHILS PERCENT AUTO 49 % (41-73); Platelet Count 322 K/mm3 (150-400); RDW Standard Deviation 54.6 fL (35.1-46.3); Red Blood Cell Count 3.16 M/mm3 (3.80-5.20); White Blood Cell Count 5.81 K/mm3 (4.00-11.30)
[2020-05-12 05:41] LABS: Albumin, Blood 2.9 g/dL (3.4-5.0); Albumin/Globulin Ratio 0.9 (0.8-1.8); Bilirubin, Total 0.4 mg/dL (0.1-1.0); Bun/Creatinine Ratio 27.3 (12.0-20.0); Calcium, Blood 9.1 mg/dL (8.5-10.1); Creatinine, Blood 1.43 mg/dL (0.40-1.00); Globulin, Blood 3.4 g/dL (2.2-4.0); Potassium, Blood 3.8 mmol/L (3.5-5.5); Total Protein, Blood 6.3 g/dL (6.4-8.2)
--- NOTE | 2020-05-12 07:22 | NUR ---
PATIENT IS ADMITTED FROM THE ED FOR LETHARGY. SHE IS ABLE TO BE AROUSED EASILY ALTHOUGH SHE IS SLUGGISH IN HER RESPONSES. ROMAZICON GIVEN AND PATIENT'S ALERTNESS INCREASED. SHE WAS ABLE TO WALK TO THE BATHROOM FOR VOIDING X1 ASSIST. SHE DOES NOT REMEMBER WHICH MEDICINES SHE TOOK AND STATED THAT IT COULD HAVE BEEN ANY OF THEM THAT WOULD HAVE CAUSED HER LETHARGY HOWEVER SHE WAS POSITIVE FOR BENZO'S, AMPHETAMINES, OXY AND METH. VSS, FLUIDS INFUSING PER ORDER, CALL LIGHT WITHIN REACH. WILL CONTINUE TO MONITOR UNTIL END OF SHIFT
--- NOTE | 2020-05-12 12:53 | NUR ---
DISCHARGE SUMMARY: Discharge d/o received. Rx's called to pharmacy per pt request. PIV dc'd by patient w/cath intact. Pt unwilling to transport via w/c, escorted via ambulation accompanied by ACC to entrance. Pt denied any questions/needs. No s/s of acute distress at time of discharge.
--- NOTE | 2020-05-12 13:17 | NUR ---
DISCHARGE NOTE PT A&Ox4; CALM AND COOPERATIVE WITH CARE. PT RESTGING IN BED THIS AM, PT IND TO BATHROOM. PT DENIES PAIN, CHEST PAIN, NASUEA, DIZZINESS AND SOB. LOW BLOOD GLUCOSE THIS AM; APPLE JUICE AND APPLESAUCE PROVIDED; CBG 71; NOTIFIED DR RAY. SINUS ALEXANDER THIS AM; HR TRENDING UP. VSS. NO OTHER ACUTE CHAGNES NOTED DURING SHIFT. ERNA RN EDUCATED PT ON DISCHARGE ORDER AND REMOVED IV. PT LEFT AT 1245.
--- NOTE | 2020-05-12 13:21 | NUR ---
DISCHARGE NOTE PT A&Ox4; CALM AND COOPERATIVE WITH CARE. PT UP TO BATHROOM IND. PT DENIES PAIN, CHEST PAIN, NAUSEA, SOB AND DIZZINESS. HR 50-60 AND BP STABLE; OTHER VSS. PT STATES SHE TOOK AN EXTRA DOSE OF MEDICATION BECAUSE SHE COULD NOT REMEMBER IF SHE HAD TAKEN IT AND THE DAY WERE INCORRECT ON PILL CONTAINERS; EDUCATED PT ON KEEPING A LOG OR CALENDAR FOR MEDICATIONS. SET PT DISCHARGE INSTRUCTIONS IN ROOM WHILE IN BATHROOM, PLANS TO EDUCATED PT AND REMOVE IV ONCE SHE CAME OUT; PER DEALER RELATIONSHIP MANAGER PT REMOVED OWN IV AND BROUGHT OUT SIDE RELEASE AND LEFT ON FOOT. NO NEW MEDICATIONS.
== END 2020-05-12 12:53 | disposition home or self-care (01) ==
LOC: ER 16:52 → PCU 16:53 → ERHOLD 16:53 → PCU 21:01
PROVIDERS: Emergency Medicine; Physician Assistant; ADMIT Internal Medicine
DX: T42.4X1A Poisoning by benzodiazepines, accidental (unintentional), initial encounter (principal); I95.2 Hypotension due to drugs; R53.83 Other fatigue; E11.22 Type 2 diabetes mellitus with diabetic chronic kidney disease; N18.3 Chronic kidney disease, stage 3 (moderate); F15.10 Other stimulant abuse, uncomplicated; E78.5 Hyperlipidemia, unspecified; G93.41 Metabolic encephalopathy; R41.82 Altered mental status, unspecified; N39.0 Urinary tract infection, site not specified; Z87.440 Personal history of urinary (tract) infections; Z94.0 Kidney transplant status; Z94.4 Liver transplant status; E89.0 Postprocedural hypothyroidism; Z88.6 Allergy status to analgesic agent; Z88.8 Allergy status to other drugs, medicaments and biological substances; Z79.891 Long term (current) use of opiate analgesic; Z79.4 Long term (current) use of insulin; Z79.82 Long term (current) use of aspirin; Z79.899 Other long term (current) drug therapy; F17.210 Nicotine dependence, cigarettes, uncomplicated
CPT/HCPCS: 36415; 71045; 80053; 80197; 81001; 81025; 82803; 82947; 83605; 83735; 84439; 84443; 84484; 85025; 87086; 93005; 93010; 96361; 96374; 99285-25; A9270-GY; G0378; G0480; J2310; J7030; J7042; J7507; J7512

== ENCOUNTER → 2020-12-22 | Outpatient (CLI) | payer MEDICARE ==
[~2020-12-22] MED LIST changes: +ALBU90OI6 INH; +Bentyl20 MG; +CALCIUM CIT 311 EACH PO; +GABA300 PO; +Lisinopril2.5 MG; +MAGNESIUM OXID500 MG PO; +MAGNESIUM250 MG PO; +MIRALAX17 GM PO; +OXYC5 PO; +PANT40 PO; +REPATHA SU140 MG/1 M SQ; +TRESIBA FL100 UNIT/2; +VITAMIN D32000 UNIT PO; +Vistaril25 MG PO
== END | disposition home or self-care (01) ==
LOC: LAB EV 18:37 → LAB SHORT 18:37
DX: N39.0 Urinary tract infection, site not specified (principal)
CPT/HCPCS: 87086

== ENCOUNTER 2021-02-07 21:06 | Emergency (ER) | payer MEDICARE ==
[~2021-02-07 21:06] MED LIST changes: +CEFP200 PO
== END 2021-02-07 21:37 | disposition left against medical advice (07) ==
LOC: ER 21:06
DX: Z53.21 Procedure and treatment not carried out due to patient leaving prior to being seen by health care provider (principal)

== ENCOUNTER 2021-02-18 20:45 | Emergency (ER) | payer MEDICARE ==
[~2021-02-18] VITALS: Ht 162.6 cm; Wt 79.4 kg
[2021-02-18] MEDS ORDERED: CLIN300 PO (22:43)
== END 2021-02-18 22:52 | disposition home or self-care (01) ==
LOC: ER 20:45
DX: L01.00 Impetigo, unspecified (principal); Z79.82 Long term (current) use of aspirin; Z79.899 Other long term (current) drug therapy; Z79.4 Long term (current) use of insulin; Z88.6 Allergy status to analgesic agent; Z88.8 Allergy status to other drugs, medicaments and biological substances; Z91.09 Other allergy status, other than to drugs and biological substances
CPT/HCPCS: 99282; A9270

== ENCOUNTER 2021-05-11 01:58 | Emergency (ER) | payer MEDICARE ==
[~2021-05-11] VITALS: Ht 172.7 cm; Wt 81.7 kg
[~2021-05-11 01:58] MED LIST changes: +CLIN300 PO; +LEVO750 PO
== END 2021-05-11 02:52 | disposition home or self-care (01) ==
LOC: ER 01:58
DX: M54.5 Low back pain (principal); I10 Essential (primary) hypertension; E11.9 Type 2 diabetes mellitus without complications; E78.5 Hyperlipidemia, unspecified; F17.200 Nicotine dependence, unspecified, uncomplicated; Z88.6 Allergy status to analgesic agent; Z88.8 Allergy status to other drugs, medicaments and biological substances; Z91.048 Other nonmedicinal substance allergy status; Z79.899 Other long term (current) drug therapy; Z79.82 Long term (current) use of aspirin; Z79.4 Long term (current) use of insulin
CPT/HCPCS: 99282; A9270

== ENCOUNTER 2021-05-20 21:58 | Inpatient (IN) | payer MEDICARE ==
[~2021-05-20] VITALS: Ht 154.9 cm; Wt 75.0 kg
[2021-05-20 22:15] LABS: Calcium, Ionized (POC) 1.13 mmol/L (1.10-1.46); Chloride (POC) 102 mmol/L (98-108); Creatinine (POC) 2.1 mg/dL (0.6-1.0); Glucose (ISTAT POC) 177 mg/dL (70-99); Hemoglobin (POC) 14.3 g/dL (12.0-16.0); Potassium (POC) 4.9 mmol/L (3.5-5.5); Sodium (POC) 139 mmol/L (135-148); Total CO2 (POC) 27 mmol/L (21-32)
[2021-05-20 22:16] LABS: BASOPHILS ABSOLUTE AUTO 0.02 K/mm3 (0.00-0.23); BASOPHILS PERCENT AUTO 0 % (0-2); EOSINOPHILS ABSOLUTE AUTO 0.01 K/mm3 (0.00-0.68); EOSINOPHILS PERCENT AUTO 0 % (0-6); Hematocrit 41.1 % (33.0-51.0); Hemoglobin 13.8 g/dL (11.5-16.0); IMMATURE GRAN ABSOLUTE AUTO 0.06 K/mm3 (0.00-0.10); IMMATURE GRAN PERCENT AUTO 1 % (0-1); LYMPHOCYTES ABSOLUTE AUTO 0.84 K/mm3 (0.84-5.20); LYMPHOCYTES PERCENT AUTO 7 % (21-46); MONOCYTES ABSOLUTE AUTO 1.34 K/mm3 (0.16-1.47); MONOCYTES PERCENT AUTO 11 % (4-13); Mean Corpuscular HGB 32.6 pg (26.0-34.0); Mean Corpuscular HGB Conc 33.6 g/dL (31.5-36.5); Mean Corpuscular Volume 97 fL (80-100); Mean Platelet Volume 9.5 fL (9.1-12.4); NEUTROPHILS ABSOLUTE AUTO 10.35 K/mm3 (1.96-9.15); NEUTROPHILS PERCENT AUTO 82 % (41-73); Platelet Count 391 K/mm3 (150-400); RDW Coefficient Variation 14.2 % (11.7-14.2); RDW Standard Deviation 50.6 fL (35.1-46.3); Red Blood Cell Count 4.23 M/mm3 (3.80-5.20); White Blood Cell Count 12.62 K/mm3 (4.00-11.30)
[2021-05-20 22:35] LABS: Albumin, Blood 3.1 g/dL (3.4-5.0); Albumin/Globulin Ratio 0.7 (0.8-1.8); Bilirubin, Total 0.6 mg/dL (0.1-1.0); Bun/Creatinine Ratio 13.3 (12.0-20.0); Calcium, Blood 9.5 mg/dL (8.5-10.1); Creatinine, Blood 1.88 mg/dL (0.40-1.00); Globulin, Blood 4.3 g/dL (2.2-4.0); Potassium, Blood 4.8 mmol/L (3.5-5.5); Total Protein, Blood 7.4 g/dL (6.4-8.2); Troponin I 0.059 ng/mL (0.000-0.040)
--- NOTE | 2021-05-20 22:50 | NUR ---
7.5 ETT, 24 CM AT TEETH
[2021-05-20 23:38] LABS: Base Excess Venous 0.2 mmol/L; Bicarbonate Venous 23.7 mmol/L (24.0-30.0); PO2 Venous 47.1 mmHg (38-42); pH Blood Venous 7.34 (7.34-7.37)
[2021-05-20 23:38] LABS: Source, Urine Catheter
[2021-05-20 23:40] LABS: Bilirubin, Urine Neg (Neg); Blood, Urine 3+ (Neg); Glucose Qualitative, Urine 2+ (Neg); Ketones, Urine 1+ (Neg); Leukocyte Esterase, Urine 2+ (Neg); Nitrite, Urine Neg (Neg); Protein, Urine 3+ (Neg); Urobilinogen, Urine NORM (Normal); pH, Urine 6.5 (5.0-8.0)
[2021-05-20 23:50] LABS: Appearance, Urine Hazy (Clear); Color, Urine Yellow (P-Yellow)
[2021-05-20 23:52] LABS: SARS-Cov-2 (COVID-19) PCR, MMC NEGATIVE (NEGATIVE)
[2021-05-20 23:56] LABS: U Amphetamine Screen DETECTED; U Barbituate Screen Not Detected; U Benzodiazapine Screen Not Detected; U Buprenorphine Screen Not Detected; U Cannabinoids Screen Not Detected; U Cocaine Screen Not Detected; U Methadone Screen Not Detected; U Methamphetamine Screen DETECTED; U Opiates Screen DETECTED; U Oxycodone Screen DETECTED; U Phencyclidine Screen Not Detected; U Propoxyphene Screen Not Detected
[2021-05-21 00:03] LABS: Bacteria Few /hpf; Red Blood Cells, Urine 0-2 /hpf (0-2); Squamous Epithelial Cells Rare /hpf (Few); White Blood Cells, Urine TNTC /hpf (0-5); Yeast/Fungi Urine Many /hpf
[2021-05-21] MEDS ORDERED: ASPI81CH PO (02:34)
[2021-05-21] MEDS ORDERED: AZAT50 PO (02:36)
[2021-05-21] MEDS ORDERED: CALCIUM 500 MG1 EAC2 PO (02:37)
[2021-05-21] MEDS ORDERED: EZET10 PO (02:38)
[2021-05-21] MEDS ORDERED: Humalog KwikPen 100 SC (02:39)
[2021-05-21] MEDS ORDERED: [UNRECOGNIZED DRUG - OTHER] SC (02:40)
[2021-05-21] MEDS ORDERED: VICTOZA SC (02:40)
[2021-05-21] MEDS ORDERED: Zestril30 MG PO (02:42)
[2021-05-21] MEDS ORDERED: METO100 PO ×2 (02:43→02:44)
[2021-05-21] MEDS ORDERED: PANT40 PO (02:45)
[2021-05-21] MEDS ORDERED: Deltasone 10 mg10 MG PO (02:46)
[2021-05-21] MEDS ORDERED: PROGRAF1 M1 PO (02:47)
[2021-05-21 04:42] LABS: BASOPHILS ABSOLUTE AUTO 0.04 K/mm3 (0.00-0.23); BASOPHILS PERCENT AUTO 0 % (0-2); EOSINOPHILS ABSOLUTE AUTO 0.02 K/mm3 (0.00-0.68); EOSINOPHILS PERCENT AUTO 0 % (0-6); Hematocrit 33.9 % (33.0-51.0); Hemoglobin 11.1 g/dL (11.5-16.0); IMMATURE GRAN ABSOLUTE AUTO 0.05 K/mm3 (0.00-0.10); IMMATURE GRAN PERCENT AUTO 1 % (0-1); LYMPHOCYTES ABSOLUTE AUTO 0.51 K/mm3 (0.84-5.20); LYMPHOCYTES PERCENT AUTO 5 % (21-46); MONOCYTES ABSOLUTE AUTO 0.71 K/mm3 (0.16-1.47); MONOCYTES PERCENT AUTO 8 % (4-13); Mean Corpuscular HGB 32.5 pg (26.0-34.0); Mean Corpuscular HGB Conc 32.7 g/dL (31.5-36.5); Mean Corpuscular Volume 99 fL (80-100); Mean Platelet Volume 9.7 fL (9.1-12.4); NEUTROPHILS ABSOLUTE AUTO 8.19 K/mm3 (1.96-9.15); NEUTROPHILS PERCENT AUTO 86 % (41-73); Platelet Count 298 K/mm3 (150-400); RDW Coefficient Variation 14.5 % (11.7-14.2); RDW Standard Deviation 52.8 fL (35.1-46.3); Red Blood Cell Count 3.42 M/mm3 (3.80-5.20); White Blood Cell Count 9.52 K/mm3 (4.00-11.30)
[2021-05-21 05:33] LABS: Alanine Aminotransfer (ALT/SGP 23 U/L (12-78); Albumin, Blood 2.3 g/dL (3.4-5.0); Albumin/Globulin Ratio 0.7 (0.8-1.8); Alk Phos 52 U/L (50-136); Anion Gap 7 mmol/L (6-16); Aspartate Aminotrans (AST/SGOT 45 U/L (12-37); Bilirubin, Total 0.5 mg/dL (0.1-1.0); Blood Urea Nitrogen 24 mg/dL (8-24); Bun/Creatinine Ratio 13.6 (12.0-20.0); CHOL/HDL RATIO 5.3; CO2, Blood 24 mmol/L (21-32); Calcium, Blood 7.9 mg/dL (8.5-10.1); Chloride, Blood 111 mmol/L (98-108); Cholesterol 184 mg/dL (50-200); Creatinine, Blood 1.77 mg/dL (0.40-1.00); Globulin, Blood 3.5 g/dL (2.2-4.0); Glomerular Filtration Rate 30 (60-); Glucose, Blood 172 mg/dL (70-99); HDL Cholesterol 35 mg/dL (>39); LDL/HDL RATIO 3.2; Low Density Lipoprotein Chol 113 mg/dL (0-110); Sodium, Blood 142 mmol/L (136-145); Thyroid Stimulating Hormone 0.277 uIU/mL (0.360-4.800); Total Protein, Blood 5.8 g/dL (6.4-8.2); Triglycerides 182 mg/dL (30-160); Very Low Density Lipoprot Chol 36 mg/dL (6-32)
--- NOTE | 2021-05-21 17:41 | NUR ---
SUMMARY PT ARRIVED FROM ER, INTUBATED AND SEDATED, 7.5 ETT, 24 AT THE LIP, VENT SETTINGS AC 16, TV 450, PEEP 5.0, AND FIO2 30%, PT SEDATED ON 4 MG VERSED IV GTT, TITRATED DOWN TO 3 MG/HR, PT GRIMACES AND FURROWS HER BROW WITH ANY CARES GIVEN AND PT COUGHS WITH ORAL CARE AND SUCTION, PUPILS ARE REACTIVE, SPOUSE HAS CALLED AND WAS GIVEN AN UPDATE, FRIEND ALSO CALLED, DR SCHOFIELD CAME TO SEE THE PT, PLAN TO WEAN IN THE AM AND HOPEFULLY EXTUBATE, VSS, NO ACUTE CHANGES, WILL CONT TO MONITOR
--- NOTE | 2021-05-21 19:43 | NUR ---
ASSUMED CARE OF PATIENT AT 1900, REPORT RECEIVED FROM LYNDON PELAYO. PT INTUBATED AND SEDATED. VENT SETTINGS AC 16/450/5/30% WITH SPO2 94%. VERSED INFUSING AT 3 MG/HR AND NS @ 100 ML/HR. HR 100'S SINUS ON MONITOR, SBP 130'S. PUPILS SLUGGISH BUT REACTIVE, PULSES FAINT IN ALL EXTREMITIES. LUNGS CLEAR WITH DIMINISHED BASES. BOWEL TONES HYPOACTIVE. ABD SOFT WITH MILD DISTENSION. PT WITHDRAWS FROM PAINFUL STIMULI, DOES NOT OPEN EYES OR FOLLOW COMMANDS. PT GRIMACING AND COUGHING WITH ETT SUCTIONING.
--- NOTE | 2021-05-22 06:28 | NUR ---
SHIFT SUMMARY PT REMAINS INTUBATED AND SEDATED. VERSED INFUSING AT 2.5 MG/HR. VENT SETTINGS AC 16/450/5/30% WITH SPO2 >90% T/O SHIFT. PT WITH HTN THIS SHIFT SBP 170-180'S, ONE DOSE OF PRN HYDRALAZINE GIVEN THIS SHIFT. PT WITHDRAWING FROM PAINFUL STIMULI, GRIMACING WHEN CARE DONE, NOT OPENING EYES OR FOLLOWING ANY COMMANDS. SPONTANEOUSLY MOVING FEET. CERDA DRAINING DARK YELLOW URINE WITH SEDIMENT TO GRAVITY. NO BM THIS SHIFT.
[2021-05-22 09:42] LABS: BASOPHILS ABSOLUTE AUTO 0.05 K/mm3 (0.00-0.23); BASOPHILS PERCENT AUTO 0 % (0-2); EOSINOPHILS ABSOLUTE AUTO 0.04 K/mm3 (0.00-0.68); EOSINOPHILS PERCENT AUTO 0 % (0-6); Hematocrit 38.5 % (33.0-51.0); IMMATURE GRAN ABSOLUTE AUTO 0.05 K/mm3 (0.00-0.10); IMMATURE GRAN PERCENT AUTO 0 % (0-1); LYMPHOCYTES ABSOLUTE AUTO 1.05 K/mm3 (0.84-5.20); LYMPHOCYTES PERCENT AUTO 9 % (21-46); MONOCYTES ABSOLUTE AUTO 1.16 K/mm3 (0.16-1.47); MONOCYTES PERCENT AUTO 10 % (4-13); Mean Corpuscular HGB Conc 31.2 g/dL (31.5-36.5); Mean Corpuscular Volume 103 fL (80-100); Mean Platelet Volume 10.1 fL (9.1-12.4); NEUTROPHILS ABSOLUTE AUTO 9.34 K/mm3 (1.96-9.15); NEUTROPHILS PERCENT AUTO 80 % (41-73); Platelet Count 311 K/mm3 (150-400); RDW Coefficient Variation 14.9 % (11.7-14.2); RDW Standard Deviation 55.8 fL (35.1-46.3); Red Blood Cell Count 3.75 M/mm3 (3.80-5.20); White Blood Cell Count 11.69 K/mm3 (4.00-11.30)
[2021-05-22 09:53] LABS: Albumin, Blood 2.1 g/dL (3.4-5.0); Albumin/Globulin Ratio 0.5 (0.8-1.8); Bilirubin, Total 0.4 mg/dL (0.1-1.0); Bun/Creatinine Ratio 13.7 (12.0-20.0); Calcium, Blood 8.6 mg/dL (8.5-10.1); Creatinine, Blood 2.26 mg/dL (0.40-1.00); Globulin, Blood 4.2 g/dL (2.2-4.0); Potassium, Blood 4.4 mmol/L (3.5-5.5); Total Protein, Blood 6.3 g/dL (6.4-8.2)
[2021-05-22 10:16] LABS: PCO2 Arterial 27.9 mmHg (35-45); PO2 Arterial 69.2 mmHg (80-100); pH Blood Arterial 7.44 (7.35-7.45)
--- NOTE | 2021-05-22 11:18 | NUR ---
PT TURNED TO CPAP MODE AT PS [address] DOWD; PT TOLERATED WELL WITH RR OF 12-15 BPM; CHANGE COMMUNICATED TO RT VIA [employer]
--- NOTE | 2021-05-22 11:20 | NUR ---
AT 1008, PT'S HTN REPORTED TO DR. DOWD; ORDERS PROVIDED TO SWITCH VERSED DRIP TO PRECEDEX AND TO ADD SCHEDULED METOPROLOL PER MAR; ORDERS ENTERED AND RX ADMINISTERED
--- NOTE | 2021-05-22 18:13 | NUR ---
SHIFT SUMMARY PT WAS SEDATED WITH VERSED AT BEGINNING OF SHIFT; TITRATED OFF AND PT NOW ON PRECEDEX AT 0.2. PT REMAINED IN BILATERAL SOFT WRIST RESTRAINTS FOR PREVENTION OF PULLING OUT ET. 7.5 ET AT 24 AT THE TEETH. PT HAS CERDA DRAINING TO GRAVITY. PT SYSTOLIC BP IN THE 150-170'S AT BEGINNING OF SHIFT; SYSTOLIC BP HAVE SINCE COME DOWN WITH PT ON PRECEDEX. HIGH BP DISCUSSED WITH DELL LEBRON ORDERED PER DR DOWD. DR. DOWD SWITCHED PT TO CPAP @ 30% FIO2 AND A PRESSURE OF 25; PT TOLERATING WELL. O2 SATS >95 T/O SHIFT. PT HAS APNEIC PERIODS OF 2-4 SECS. PT WAS MOVED FROM [facility] TO U FOR MONITORING BECAUSE ROOM 8 HAS A CAMERA.
--- NOTE | 2021-05-23 | NUR ---
REASSESSMENT PATIENT RESTING QUIETLY IN BED. NO CHANGES SINCE LAST ASSESSMENT. VENT SETTINGS REMAIN UNCHANGED AT PS 15/5/30% FIO2 WITH OXYGEN SATURATION REMAINING ABOVE 90%. HR MAINTAINING MID 60S. BILATERAL SOFT WRIST RESTRAINTS IN PLACE FOR LINE/CORD/TUBE PROTECTION. PRECEDEX GTT AT 0.2 MCG/KG/HR.
--- NOTE | 2021-05-23 00:17 | NUR ---
WASTED 80 ML'S OF VERSED WITH DIMAS PELAYO. PT CURRENTLY ON PRECEDEX GTT.
--- NOTE | 2021-05-23 04:00 | NUR ---
REASSESMENT VENT SETTINGS REMAIN UNCHANGED SINCE LAST ASSESSMENT. VENT SETTINGS AT PS 15/5/30% FIO2 MAINTAINING OXYGEN SATURATION ABOVE 95%. PUPILS ARE LESS SLUGGISH THAN PREVIOUS ASSESSMENTS. PATIENT STARTING TO WITHDRAW TO SOME PAINFUL STIMULI. HR AND BP HAVE REMAINED UNCHANGED.
--- NOTE | 2021-05-23 06:21 | NUR ---
SHIFT SUMMARY PATIENT REMAINS INTUBATED WITH VENT SETTINGS AT PS 15/5/30% FIO2 WITH OXYGEN SATURATIONS ABOVE 92%. PRECEDEX GTT ON STANDBY AT THIS TIME, SEE FLOWSHEET FOR TIMING. PATIENT IS WITHDRAWING MORE FROM PAINFUL STIMULI THAN PREVIOUS ASSESSMENT. PATIENT IS NOT OPENING HER EYES OR FOLLOWING DIRECTIONS. FEET MAKING SPONTAEOUS MOVEMENTS. CERDA IN PLACE DRANING DARK YELLOW URINE WITH SOME SEDIMENT. NO OTHER SIGNIFICANT CHANGES SINCE LAST ASSESSMENT.
[2021-05-23 09:27] LABS: Hematocrit 34.7 % (33.0-51.0); Hemoglobin 11.3 g/dL (11.5-16.0); Mean Corpuscular HGB 33.1 pg (26.0-34.0); Mean Corpuscular HGB Conc 32.6 g/dL (31.5-36.5); Mean Corpuscular Volume 102 fL (80-100); Mean Platelet Volume 9.7 fL (9.1-12.4); Platelet Count 350 K/mm3 (150-400); RDW Coefficient Variation 14.5 % (11.7-14.2); RDW Standard Deviation 54.5 fL (35.1-46.3); Red Blood Cell Count 3.41 M/mm3 (3.80-5.20); White Blood Cell Count 8.94 K/mm3 (4.00-11.30)
[2021-05-23 09:47] LABS: Albumin, Blood 1.9 g/dL (3.4-5.0); Anion Gap 11 mmol/L (6-16); Blood Urea Nitrogen 43 mg/dL (8-24); Bun/Creatinine Ratio 21.3 (12.0-20.0); CO2, Blood 19 mmol/L (21-32); Calcium, Blood 8.8 mg/dL (8.5-10.1); Chloride, Blood 115 mmol/L (98-108); Creatinine, Blood 2.02 mg/dL (0.40-1.00); Glomerular Filtration Rate 25 (60-); Glucose, Blood 192 mg/dL (70-99); Phosphorus, Blood 3.5 mg/dL (2.5-4.9); Sodium, Blood 145 mmol/L (136-145)
[2021-05-23 14:38] LABS: Vancomycin, Trough 15.7 ug/mL (5.0-10.0)
--- NOTE | 2021-05-23 16:05 | NUR ---
RESP UPDATE AT 1540, PT WENT APNEIC WITH THE VENTILATOR GOING INTO BACKUP MODE. PT DISPLAY NO RISE OR FALL OF CHEST. REST OF VS STABLE. RT CONTACTED. RT PUT THE VENTILATOR AT R 16, TV 450, FIO2 40%, PEEP 5. DR DOWD UPDATED IN PERSON, NO CHANGES RECOMMENDED AT THIS TIME. WILL CONTINUE TO MONITOR.
--- NOTE | 2021-05-23 17:17 | NUR ---
SHIFT SUMMARY PRECEDEX STOPPED AROUND 0400 PER NOC RN, PT NOT ABLE TO BE ROUSED T/O SHIFT. 7.[address]; 24 AT THE TEETH. GAG REFLEX PRESENT WHEN DOING SUCTION. NO WITHDRAWAL OF EXTEMITIES WITH PAIN STIMULI. PT TOES FAN WHEN PEDAL PORTION OF FEET ARE STIMULATED. PT NOT ABLE TO TO TRACK SOUNDS WITH EYES. PT BP HYPERTENSIVE T/O SHIFT, PRN HYDRALIZINE HAD LITTLE EFFECT. PT WENT APNEIC WITH VENT HAVING TO TAKE OVER BY PROVIDING TOTAL SUPPORT, SEE NOTES @1605. PT 02 SATS REMAINED >95 T/O SHIFT. CERDA IN PLACE DRAINING TO GRAVITY, DARK YELLOW URINE. PT HAS SPONTANEOUS MOVEMENTS OF HER LEFT FOOT.
--- NOTE | 2021-05-23 18:52 | NUR ---
THIS RN CALLED DR. CLYDE SANDOVAL AT [address] LANCASTER AND DR. DOWD'S CONSULT TO NEUROLOGY; DR. SANDOVAL REQUESTED THAT THIS RN PROVIDE HIS NUMBER TO DR. DOWD; THIS RN CALLED DR. DOWD AT 190 AND LEFT A MESSAGE TO CALL NURSE'S STATION; DR. DOWD CALLED THIS RN AT 190 TO SAY THAT SHE WILL CALL DR. SANDOVAL IN THE MORNING AND THAT IT IS NOT AN URGENT CONSULT; THIS RN CALLED DR. SANDOVAL AT 191 AND NOTIFIED HIM THAT DR. DOWD WILL CALL HIM TOMORROW; NO NEW ORDERS PLACED BY ANY PHYSICIAN AT THIS TIME
--- NOTE | 2021-05-23 22:24 | NUR ---
UPDATE PATIENT MEDICATED FOR HTN WITH HYDRALAZINE. BLOOD PRESSURES TRENDING UP SINCE START OF SHIFT WITH RECENT SBP 180s.
--- NOTE | 2021-05-23 23:44 | NUR ---
PERSONAL BELONGING RING REMOVED FROM PATIENT'S LEFT RING FINGER. RING WAS PLACED IN SPECIMEN CUP WITH A PATIENT LABEL ATTACHED TO THE CUP. CUP WITH RING IN IT WAS PLACED IN PATIENT'S ROOM CLOSET WITH OTHER PERSONAL BELONGINGS.
--- NOTE | 2021-05-24 00:06 | NUR ---
REASSESSMENT PATIENT REMAINS INTUBATED WITH VENT SETTINGS AT AC 16/450/35% FIO2, PEEP 5. OXYGEN SATURATION REMAINS ABOVE 92%. PATIENT NOT ROUSABLE TO VERBAL STIMULI. DOES NOT FOLLOW COMMANDS. WITHDRAWING FROM PAIN ON THE LEFT UPPER/LOWER EXTREMITIES. PUPILS REMAIN SLUGGISH. PATIENT HAVING EPISODES OF HTN, SEE PREVIOUS NOTE. CONTINUING TO MONITOR. NO OTHER SIGNIFICANT CHANGES SINCE SHIFT ASSESSMENT.
--- NOTE | 2021-05-24 02:19 | NUR ---
0200 UPDATE UPON ENTERING PATIENTS ROOM, PATIENT WAS FOUND WITH BOTTOM LIP IN BETWEEN TEETH AND BITE BLOCK. LIP WAS REMOVED FROM BETWEEN TEETH AND BITE BLOCK. PUNCTURE WOUND FOUND ON LIP WITH MINIMAL BLEEDING. WILL MONITOR FOR MORE BLEEDING.
--- NOTE | 2021-05-24 04:00 | NUR ---
REASSESSMENT VENT SETTINGS ARE AT PS 10/5/35% FIO2. BREATHING TRIAL IN PROGRESS. OXYGEN SATURATION MAINTAINING ABOVE 90%. MEDICATED PER EMAR FOR PERIODS OF HTN WITH PRN HYDRALAZINE AND METOPROLOL. MINIMAL WITHDRAW FROM PAINFUL STIMULI ON RIGHT SIDE UPPER/LOWER EXTREMITIES. POSTURING WITHDRAWL TO PAINFUL STIMULI ON LEFT SIDE. PUPILS REMAIN SLUGGISH. SINCE LAST ASSESSMENT, PATIENT HAS HAD EPISODES OF NYSTAGMUS. PATIENT STILL UNABLE TO FOLLOW COMMANDS.
--- NOTE | 2021-05-24 06:01 | NUR ---
SHIFT SUMMARY PATIENT REMAINS INTUBATED WITH VENT SETTINGS AT PS 10/5/35% FIO2, PEEP 5. BREATHING TRIAL IN PROGRESS SINCE AROUND 0400. O2 SATURATION IS MAINTAING ABOVE 90%. PATIENT HAS HAD PERIODS OF HTN THROUGHOUT THE NIGHT, SEE PREVIOUS NOTES AND EMAR. SOME CHANGES THROUGHOUT SHIFT TO NEURO STATUS, SEE REASSESSMENT NOTES. NO OTHER SIGNIFICANT CHANGES TO PATIENT'S STATUS.
--- NOTE | 2021-05-24 07:30 | NUR ---
ASSUMED CARE: PT RESTING IN BED, INTUBATED, NO SEDATION. PS 450/40/5. OG TUBE CLAMPED, CERDA CATH IN PLACE. NO PURPOSEFUL MOVEMENT, NOTED TO MOVE HEAD, PUPILS EQUAL AND REACTIVE
[2021-05-24 08:36] LABS: Hemoglobin 11.6 g/dL (11.5-16.0); Mean Corpuscular HGB 32.4 pg (26.0-34.0); Mean Corpuscular HGB Conc 32.2 g/dL (31.5-36.5); Mean Corpuscular Volume 101 fL (80-100); Mean Platelet Volume 9.4 fL (9.1-12.4); Platelet Count 423 K/mm3 (150-400); RDW Coefficient Variation 14.5 % (11.7-14.2); RDW Standard Deviation 53.5 fL (35.1-46.3); Red Blood Cell Count 3.58 M/mm3 (3.80-5.20); White Blood Cell Count 8.19 K/mm3 (4.00-11.30)
[2021-05-24 08:55] LABS: Albumin, Blood 2.1 g/dL (3.4-5.0); Anion Gap 12 mmol/L (6-16); Blood Urea Nitrogen 38 mg/dL (8-24); Bun/Creatinine Ratio 24.1 (12.0-20.0); CO2, Blood 19 mmol/L (21-32); Calcium, Blood 9.2 mg/dL (8.5-10.1); Chloride, Blood 115 mmol/L (98-108); Creatinine, Blood 1.58 mg/dL (0.40-1.00); Glomerular Filtration Rate 34 (60-); Glucose, Blood 153 mg/dL (70-99); Phosphorus, Blood 3.5 mg/dL (2.5-4.9); Potassium, Blood 3.7 mmol/L (3.5-5.5); Sodium, Blood 146 mmol/L (136-145)
--- NOTE | 2021-05-24 10:30 | NUR ---
DR MATHEWS CAME TO SEE PT AND STATES THAT HE WANTS REPEAT UA TO SEE IF ANTIFUNGAL IS STILL NEEDED. STATES FLUCONAZOLE IS NOT MOST EFFECTIVE AGAINST PT'S YEAST BUT OTHER OPTIONS ARE NEPHRO AND HEPATOTOXIC. NO FURTHER NEEDS AT THIS TIME.
--- NOTE | 2021-05-24 11:52 | NUR ---
DR DOWD AND DR HERNANDEZ CAME TO SEE PT AND ARE AWARE OF PT'S LACK OF PURPOSEFUL MOVEMENT BUT REACTIVE PUPILS AND SOME RELFEXIVE MOVEMENTS. STATES SHE WILL SPEAK WITH NEUROLOGY FOR FURTHER RECOMMENDATIONS.
[2021-05-24 12:29] LABS: Source, Urine Catheter
[2021-05-24 12:41] LABS: Appearance, Urine Hazy (Clear); Bilirubin, Urine Neg (Neg); Blood, Urine 3+ (Neg); Color, Urine Yellow (P-Yellow); Glucose Qualitative, Urine 2+ (Neg); Ketones, Urine 4+ (Neg); Leukocyte Esterase, Urine 2+ (Neg); Nitrite, Urine Neg (Neg); Protein, Urine 2+ (Neg); Specific Gravity, Urine 1.015 (1.003-1.022); Urobilinogen, Urine NORM (Normal)
[2021-05-24 12:51] LABS: Bacteria Mod /hpf; Squamous Epithelial Cells Rare /hpf (Few)
[2021-05-24 12:52] LABS: Yeast/Fungi Urine Many /hpf
[2021-05-24 12:54] LABS: Transitional Epithelial Cells Rare /hpf (0-Rare)
--- NOTE | 2021-05-24 14:42 | NUR ---
DR DOWD STATED SHE SPOKE WITH NEUROLOGIST ABOUT PT'S STATUS AND THEY RECOMMENDED EEG. MESSAGE LEFT AT SLEEP STUDY OFFICE. THEY STATED THEY WOULD REACH OUT TO TECH TRAINING INSTRUCTOR. DR DOWD AWARE THAT EEG MAY NOT BE DONE TODAY. DR ALSO AWARE THAT WE ARE STILL DEALING WITH HTN DESPITE PRNS. SEE NEW ORDERS
--- NOTE | 2021-05-24 18:30 | NUR ---
SHIFT SUMMARY: PT RESTING QUIETLY ON PS 450/35/5. REMAINS NONRESPONSIVE AND DOES NOT DO ANY PURPOSEFUL MOVEMENTS. PULMONOLOGY CONSULTED NEUROLOGY WHO WANTS EEG. TECH STATED SHE WOULD TRY TO GET IT DONE THIS EVENING BUT DRS ARE AWARE THAT IT MAY NOT BE AVAILABLE UNTIL TOMORROW. SPOKE WITH PT'S S.O. THIS SHIFT. NUMBER ON WHITE BOARD AND CHART. NO FURTHER NEEDS AT THIS TIME.
--- NOTE | 2021-05-24 19:30 | NUR ---
ASSUMED CARE OF PT, BEDSIDE REPORT RECEIVED. NS AT TKO OTHERWISE NOT GTTS. PT VENT SETTINGS SPONTANEOUS, SHORT PERIODS OF APNEA CONTINUE INFREQUENTLY, SATS MAINTAINING HIGH 90S, CONTINUES HYPERTENSIVE. EEG PLANNED FOR TONIGHT
--- NOTE | 2021-05-24 20:30 | NUR ---
EEG AT BEDSIDE
[2021-05-25 04:36] LABS: Hematocrit 36.4 % (33.0-51.0); Hemoglobin 11.6 g/dL (11.5-16.0); Mean Corpuscular HGB 32.4 pg (26.0-34.0); Mean Corpuscular HGB Conc 31.9 g/dL (31.5-36.5); Mean Corpuscular Volume 102 fL (80-100); Mean Platelet Volume 9.5 fL (9.1-12.4); Platelet Count 442 K/mm3 (150-400); RDW Coefficient Variation 14.5 % (11.7-14.2); RDW Standard Deviation 54.4 fL (35.1-46.3); Red Blood Cell Count 3.58 M/mm3 (3.80-5.20); White Blood Cell Count 10.29 K/mm3 (4.00-11.30)
[2021-05-25 05:20] LABS: Albumin, Blood 2.2 g/dL (3.4-5.0); Anion Gap 12 mmol/L (6-16); Blood Urea Nitrogen 43 mg/dL (8-24); Bun/Creatinine Ratio 27.2 (12.0-20.0); CO2, Blood 19 mmol/L (21-32); Calcium, Blood 9.4 mg/dL (8.5-10.1); Chloride, Blood 113 mmol/L (98-108); Creatinine, Blood 1.58 mg/dL (0.40-1.00); Glomerular Filtration Rate 34 (60-); Glucose, Blood 204 mg/dL (70-99); Phosphorus, Blood 3.9 mg/dL (2.5-4.9); Potassium, Blood 4.2 mmol/L (3.5-5.5); Sodium, Blood 144 mmol/L (136-145)
--- NOTE | 2021-05-25 06:03 | NUR ---
PT CONTINUES WITHOUT SEDATION THROUGHOUT THIS SHIFT VENTILATOR REMAINS ON SPONTANEOUS SETTINGS, NO NEURO CHANGES ARE NOTED, EEG WAS COMPLETED EARLY THIS SHIFT. PT HAS TOLERATED Q 2 HOUR TURNS WELL, INTERMITTENT, INFREQUENT COUGH IS NOTED BUT NO GAG REFLEX THROUGHOUT SHIFT.
--- NOTE | 2021-05-25 14:16 | NUR ---
Requested by Dr. Ledbetter to see pt and to assist with advanced care planning for Meera. Meera is currently on the ventilator with no sedation at this time. She is non-responsive per nursing staff. PC to [employer] to determine if Meera has contacts listed in their system. Alyce Lai (no relation and no phone number in [employer]) Kem Joelle (parent) [phone] or [phone] Telephone call to Dedrick, pt's S.O. of 4 years. He reports they are supposed to get this month. Dedrick is upset he cannot see Meera, he is accusing staff of not treating Meera right because of her hx of SI. Explained to him that all patients are treated equally regardless of medical condition or medical history. He jumps from thought to thought and alternates between being angry and tearful. Gave him an update on Meera, however he doesn't seem to grasp that she is critically ill. He states "If I could just come and see her and give her a hug she would just wake up for me." Explained to him that he is unable to come visit her due to covid restrictions at this time. Explained that he is welcome to come and be outside of her window in her PCU room if that would be helpful for him. Asked Dedrick is Meera had any relatives.He states that he thinks Meera has a dtr who he reports Meera told him is "a heroin addict." Dedrick has never met Meera's dtr. Dedrick also reports that Meera has an adopted father. He was not able to give a first name, however this could be Kem that was listed in the [employer] system contacts for Meera. No answer on Kristen' [phone] number. Not able to LM. Left a [employer]IP[employer] appropriate message on the other number listed for Kem [phone] to contact the PC department re: his dtr. Updated bedside nurse of attempts to contact family. PC to continue to assist with finding family and advanced care planning.
--- NOTE | 2021-05-25 14:28 | NUR ---
PT TRANSPORTED TO AND FROM RADIOLOGY FOR A HEAD CT SCAN, LEFT AT 1115 AND RETURNED AT 1135 ACCOMPANIED BY RT AND RNX2 WITH NO INFUSIONS, WITH MONITORING, AND WITH ADVANCED OXYGENATION THERAPY; PT TOLERATED SCAN WELL. DR. DOWD NOTIFIED AT BEDSIDE OF SCAN COMPLETION.
[2021-05-25 14:40] LABS: Vancomycin, Trough 18.4 ug/mL (5.0-10.0)
--- NOTE | 2021-05-25 17:50 | NUR ---
PT DOES NOT FOLLOW COMMANDS AND ONLY GRIMACES TO STERNAL RUBS, FLACCID BUE BUT SPONTANEOUSLY MOVES BLE, HAS A GAG AND COUGH, AND HAS PERRLA, GAZE DIRECTION IS VARIABLE AND DOES NOT TRACK, PT APPEARS TO CHEW TUBE IMMEDIATELY AFTER ORAL CARE IS PERFORMED, PROFUSE ORAL SECRETIONS, SCANT CREAM-COLORED THICK INLINE SECRETIONS, IN BUE SOFT WRIST RESTRAINTS FOR TUBE PROTECTION, TMAX 37.4 VIA CORE MONITORING, HEAD CT COMPLETED, PT IN NSR WITH HTN, DR. DOWD NOTIFIED AT BEDSIDE THAT PRN ANTIHYPERTENSIVES DO NOT APPEAR TO AFFECT SBP, DOSE OF BID METOPROLOL INCREASED TO 100MG, PT HAS INTERMITTENT SHORT (LESS THAN 20 SEC) PERIODS OF APNEA, BACKUP RATE ON VENTILATOR ACTIVATED 2X, 7.5 ETT 24 AT TEETH, CURRENT SETTINGS OF THIS WRITING ARE PS 10 TV 450 AT 30% WITH A PEEP OF 5, CLEAR LUNG SOUNDS, HYPOACTIVE BOWEL SOUNDS, CLAMPED OG TUBE, NO INTEGUMENTARY EXCEPTIONS, PT HAS 20G PIV'S IN BILAT AC'S AND 18G IN L BRACHIAL SITE, PT HAS CERDA DRAINING CLEAR YELLOW URINE, NO CHANGES TO PLAN OF CARE AT THIS TIME
--- NOTE | 2021-05-25 18:41 | NUR ---
Received a call from Kem Lai, who confirms he is indeed pt's father. I gave him an update on pt's current condition, as well as informing him that he is the legal decision-maker at this point. He tells me he will meet this evening with pt's daughter and sister. Pt also has another daughter in [place] but that both daughters are estranged. I also tell him no decisions need to be made tonight, and Emely will call him in the morning to discuss more in depth after they've had the night to process this. He thanked me, and states "none of this is a big suprise" due to pt's health history.
--- NOTE | 2021-05-25 19:32 | NUR ---
ASSUMED CARE PATIENT LYING IN BED INTUBATED ON SPONTANEOUS W/ PS 10, TV 450, PEEP 5, AND FIO2 25% MAINTAINING SPO2 GREATER THAN 90%. PATIENT IS HYPERTENSICE W/ SBP 170'S AND MAP GREATER THAN 100. PATIENT IS LEANING TOWARDS THE LEFT IN BED W/ PILLOWS ATTEMPTING TO PROP HEAD TO MIDLINE. CERDA PATENT AND DRAINING DARK YELLOW CLEAR URINE TO GRAVITY. OGT IN PLACE FOR MED ADMINISTRATION, BUT NO TF @ THIS TIME. PATIENT HAS ANTIBIOTIC INF. WILL CONTINUE TO MONITOR.
[2021-05-26 03:40] LABS: Hematocrit 37.3 % (33.0-51.0); Hemoglobin 11.8 g/dL (11.5-16.0); Mean Corpuscular HGB 32.1 pg (26.0-34.0); Mean Corpuscular HGB Conc 31.6 g/dL (31.5-36.5); Mean Corpuscular Volume 101 fL (80-100); Mean Platelet Volume 9.3 fL (9.1-12.4); Platelet Count 422 K/mm3 (150-400); RDW Coefficient Variation 14.4 % (11.7-14.2); RDW Standard Deviation 53.1 fL (35.1-46.3); Red Blood Cell Count 3.68 M/mm3 (3.80-5.20); White Blood Cell Count 8.66 K/mm3 (4.00-11.30)
[2021-05-26 03:59] LABS: Albumin, Blood 2.3 g/dL (3.4-5.0); Anion Gap 10 mmol/L (6-16); Blood Urea Nitrogen 43 mg/dL (8-24); Bun/Creatinine Ratio 28.3 (12.0-20.0); CO2, Blood 22 mmol/L (21-32); Calcium, Blood 9.7 mg/dL (8.5-10.1); Chloride, Blood 114 mmol/L (98-108); Creatinine, Blood 1.52 mg/dL (0.40-1.00); Glomerular Filtration Rate 35 (60-); Glucose, Blood 178 mg/dL (70-99); Phosphorus, Blood 3.1 mg/dL (2.5-4.9); Sodium, Blood 146 mmol/L (136-145)
--- NOTE | 2021-05-26 06:01 | NUR ---
SHIFT SUMMARY PATIENT REMAINED INTUBATED ON SPONTANEOUS THROUGHOUT SHIFT W/ SETTINGS OF PS 10, TV 450, PEEP 5, 25% FIO2 MAINTAINING SPO2 GREATER THAN 90%. PATIENT HAD MINIMAL PERIODS OF APNEA LASTING 10-15 SECONDS AND ABLE TO RECOVER ON OWN. PATIENT REMAINED HYPERTENSIVE W/ SBP 170'S-190'S AND MAPS 120'S THROUGHOUT SHIFT W/ 1 DOSE OF HYDRALAZINE IV AND 1 DOSE OF METOPROLOL IV ADMINISTERED; DECREASING SBP TO 150'S-160'S AND MAPS TO 110'S. PATIENT REMAINED UNRESPONSIVE WITH NO PURPOSEFUL MOVEMENTS. WILL CONTINUE TO MONITOR UNTIL REPORT GIVEN TO ONCOMING RN.
--- NOTE | 2021-05-26 07:45 | NUR ---
Care Assumed 0700 Vent settings: PS 10/5, FIO2 25%, SPO2 >95%. LS coarse T/O. Pt with minial head movement during oral care and slightly grimaces. Unable to open eyes or follow commands. Pupils reactive to light (4 brisk) with leftward gaze. No other movement noted. BT hyperactive. Temp yoder in place with 275 yellow clear output. Pt hypertensive (SBP 190-200's), will treat per emar. NSR HR 80'S. SWB in place.
--- NOTE | 2021-05-26 10:57 | NUR ---
Provider Visit Dr. Lopez in to see patient. Updated on patient being hypertensive, provider to place new orders for this. Updated on Evolocumab not being available per pharmacy and unable to obtain when patient last recieved dose. To be held for now.
--- NOTE | 2021-05-26 12:04 | NUR ---
Spoke to patients Boyfriend Spoke to patients boyfriend, Dedrick. He states, "I missed a phone call from someone." Per Dedrick, he does not have a voicemail stepup therefore, he does not know who called him. Boyfriend states, "I just need to come see her and once I touch her she will wakeup." Explained during restrications with little understand. Dedrick either angry or tearful. Offers to facetime with patient via zoom or place phone next to her ear. He does not want to do this and only wants to come in to see patient. Spoke to pallative care, in case they called, per Emely patients father Kem is the primary decision maker and he is to speak with provider later on today.
--- NOTE | 2021-05-26 12:50 | NUR ---
Received a call from Kem this morning. He would like an update. Kem has been in contact with Meera's sister and her dtr, Alyce, and has given them an update on Meera from the information he rec'd yesterday. Chart reviewed. Discussed current code status and plan of care at this time. Gently explained that Meera's family will need to be making some decisions in the coming days re: code status and plan of care. Kem states he understands and that he would like an update from physician. Kem states that Alyce, Meera's sister and himself have all been in contact with each other and plan to make any decisions together as a family. Kem provided Alyce's number [phone] as she is pt's adult dtr. Kem states Meera has another dtr in [place] who is estranged from her. He doesn't have any contact information for the dtr in [place]. Spoke with the card feeder, Janice, who states that pt is now 7 days of NPO. If plan is to contiue to care, pt will need to have TF for nutritional support. Spoke with Dr. Duque who will evaluate Meera and will call pt's dtr, Alyce with an update. Nursing updated. PC to remain available for family support and assistance with advanced care planning.
--- NOTE | 2021-05-26 15:37 | NUR ---
Spoke with Dr. Duque who has updated pt's dtr Alyce of her condition. Returned a phone call to answer a voice mail left by Alyce to answer further questions. Alyce reports that they do not know who Dedrick (pt's S.O. per his report)is and per Alyce it is ok for him to have general information about Meera's condition but not specific information. Alyce states that the current plan is "To keep doing what you're doing." Alyce states that her aunt, great aunt, grandfather and her will be getting together to discuss a plan going forward to address code status and trajectory of care. Encouraged Alyce to contact PC department if she has questions or if they have made a decision. PC to continue to follow with support for pt and family at this time.
--- NOTE | 2021-05-26 17:45 | NUR ---
Shift Summary Vent settings: PS 10/5, FIO2 25%, SPO2 > 95%. Pt remains on no sedation. Grimaces during oral care, opens eyes spontanous, not tracking, and has left upward gaze with dolls eyes. Pupils (4mm), brisk response to light. No purposeful movement noted t/o shift. Saleem in place with clear yellow output. PIvot TF started at 10 ml/hr via OG tube, will advance to goal. Dr. Duque spoke to patients family today (father and daughter). Spoke to patient daughter and she state she was not aware of patient being in hospital and does not know her mother had a boyfriend. Daughter updated on current care being provided and all questions answered.
--- NOTE | 2021-05-26 19:00 | NUR ---
ASSUMPTION OF CARE ASSUMED CARE AT 1900. VENT SETTINGS: PS 10/5/25% FIO2. OXYGEN SATURATION MAINTAINING ABOVE 90%. PATIENT RESTING, EYES CLOSED. NOT ROUSABLE UPON ENTERING ROOM WITH DAY SHIFT RN. SOFT WRIST RESTRAINTS IN PLACE BILATERALLY. TF RUNNING AT 10ML. CERDA IN PLACE.
--- NOTE | 2021-05-27 02:31 | NUR ---
PERSONAL MEDICATION BAG THE PATIENT HAS A PERSONAL MEDICATION BAG LOCATED IN THE CLOSET OF U [facility]. DURING REPORT IT WAS NOTED THE PATIENT TAKES AN INJECTABLE AT HOME MED CALLED [facility]. THIS RN NOTED A BAG OF MEDICATIONS LOCATED IN THE CLOSET TO DAY SHIFT RN. UPON LOOKING IN PERSONAL MEDICATION BAG FOR CERTAIN INJECTABLE HOME MED, A CRYSTALIZED WHITE SUBSTANCE IN A SMALL CYLINDER JAR WITH A BLACK LID WAS FOUND BY THIS RN AND INDIGO MARTINEZ RN. SECURITY WAS CALLED AND SECURITY WASTED THE UNIDENTIFIED SUBSTANCE IN THE TOILET.
[2021-05-27 03:56] LABS: BASOPHILS ABSOLUTE AUTO 0.04 K/mm3 (0.00-0.23); BASOPHILS PERCENT AUTO 0 % (0-2); EOSINOPHILS PERCENT AUTO 2 % (0-6); Hematocrit 37.9 % (33.0-51.0); Hemoglobin 12.1 g/dL (11.5-16.0); IMMATURE GRAN ABSOLUTE AUTO 0.05 K/mm3 (0.00-0.10); IMMATURE GRAN PERCENT AUTO 1 % (0-1); LYMPHOCYTES ABSOLUTE AUTO 0.91 K/mm3 (0.84-5.20); LYMPHOCYTES PERCENT AUTO 9 % (21-46); MONOCYTES ABSOLUTE AUTO 0.65 K/mm3 (0.16-1.47); MONOCYTES PERCENT AUTO 7 % (4-13); Mean Corpuscular HGB 32.3 pg (26.0-34.0); Mean Corpuscular HGB Conc 31.9 g/dL (31.5-36.5); Mean Corpuscular Volume 101 fL (80-100); Mean Platelet Volume 9.6 fL (9.1-12.4); NEUTROPHILS ABSOLUTE AUTO 7.92 K/mm3 (1.96-9.15); NEUTROPHILS PERCENT AUTO 81 % (41-73); Platelet Count 413 K/mm3 (150-400); RDW Coefficient Variation 14.1 % (11.7-14.2); RDW Standard Deviation 51.9 fL (35.1-46.3); Red Blood Cell Count 3.75 M/mm3 (3.80-5.20); White Blood Cell Count 9.77 K/mm3 (4.00-11.30)
[2021-05-27 04:14] LABS: Albumin, Blood 2.3 g/dL (3.4-5.0); Albumin/Globulin Ratio 0.5 (0.8-1.8); Bilirubin, Total 0.5 mg/dL (0.1-1.0); Bun/Creatinine Ratio 32.6 (12.0-20.0); C-REACTIVE PROTEIN, EXT RANGE 2.46 mg/dL (0.000-0.300); Calcium, Blood 9.6 mg/dL (8.5-10.1); Creatinine, Blood 1.32 mg/dL (0.40-1.00); Globulin, Blood 4.7 g/dL (2.2-4.0); Magnesium, Blood 1.9 mg/dL (1.6-2.4); Phosphorus, Blood 3.1 mg/dL (2.5-4.9)
--- NOTE | 2021-05-27 05:51 | NUR ---
SHIFT SUMMARY PATIENT REMAINS INTUBATED WITH VENT SETTINGS AT PS 10/5/25% FIO2. OXYGEN SATURATIONS REMAIN ABOVE 92%. REMAINS ON NO SEDATATION. BILAT SOFT WRIST RESTRAINTS IN PLACE. NO CHANGES TO NEUROLOGICAL STATUS, NO PURPOSEFUL MOVEMENTS. TF VIA OG TUBE TITRATED TO GOAL AT 45 ML/HR. PATIENT MEDICATED FOR HYPERTENSION DURING SHIFT, SEE EMAR. CERDA IN PLACE DRAINING CLEAR/YELLOW URINE. MEPILEX PLACED TO COCCYX FOR PREVENTATIVE MEASURES DURING BED BATH. NO OTHER SIGNIFICANT CHANGES.
--- NOTE | 2021-05-27 08:59 | NUR ---
Care Assumed 0700 Vent settings: PS 10/5, FIO2 25%. Currently on no sedation. Tolerating vent well. SPO2 > 93%. Grimaces during oral care, turning head to the left. Pupils 4 mm and brisk. Patient has dolls eyes. OG tube in place with Pivot 1.5 @ goal of 45 ml/hr, 30ml Q4H flush. BT active. Temp yoder in place. Hypertensive at times (157/91), will treat per emar. SWB have been removed due to patient not moving extrems, will closly monitor.
--- NOTE | 2021-05-27 11:00 | NUR ---
update- Donor line Per Amfélixda from donor line patient is currently not a candidate due to tolerating PS. If she has a cardiac event or circumstance change, donor line would like to be called.
--- NOTE | 2021-05-27 11:15 | NUR ---
Ethics consultation service provided. Case details, medical history and prognostic factors reviewed with the managing oil prospecting observer, Dr Cantu. The principal is unsedated, somnolent, and unresponsive to noxious stimuli. She decompensated secondary to illicit narcotic use, is supported by mechanical intubation, and is registered as full code. It is medically unlikely that she will stabalize and experience a meaningful recovery. Dr Cantu will prime the family for a transition of code status to a less aggressive and more clinically reasonable approach, and prepare them for a de-escalation of care discussion with me. I will facilitate this on 05/28/21. Thank you for this consult, Castro Bhandari THD
--- NOTE | 2021-05-27 12:29 | NUR ---
Provider Visit Dr. Lopez at bedside. Updated on patients CBG of 366, pt to be changed from medium scale to high sliding scale. Will recheck in two hours.
--- NOTE | 2021-05-27 15:47 | NUR ---
Hyperglycemia Spoke to Dr. Lopez in regards to patients hyperglycemia. Recieved new orders per emar. Patient to recieve another 10 units of Regular insulin and recheck in two hours.
--- NOTE | 2021-05-27 18:14 | NUR ---
Shift Summary PS 10/5, FIO2 25%. No sedation. Dolls eyes continue to be present. Pt moves head back and forth. Grimaces during oral care and eyelids resistant to opening for pupil checks. Pupils round and reactive. Saleem in place. OG tube in place with TF @ goal. Pt hyperglycemic, new orders recieved per Dr. Lopez, see emar. CBG recheck in 1-2 hours after recieving 10 units of regular insulin. Spoke to patients daughter and updated on care being provided. Per daughter, patients father to come in to visit tomorrow. Family spoke with Dr. Cantu and was updated as well. Daughter states she is ok with patients boyfriend being updated and does not want him to visit yet.
--- NOTE | 2021-05-27 19:00 | NUR ---
ASSUMPTION OF CARE PATIENT INTUBATED WITH VENT SETTINGS AT 10/5/25% FIO2. OXYGEN SATURATION ABOVE 92%. TF AT GOAL OF 45 ML/HR WITH Q4 30ML FLUSH THROUGH OG TUBE. TEMP CERDA IN PLACE DRAINING CLEAR YELLOW URINE. WRIST RESTRAINTS REMOVED DURING DAY SHIFT.
--- NOTE | 2021-05-27 20:00 | NUR ---
HYPERGLYCEMIA UPDATE BLOOD SUGAR TAKEN AT 194 WAS 353. CALL PLACED TO DR. RAY WITH ORDERS FOR COVERAGE, SEE EMAR. WILL RECHECK BLOOD SUGAR AGAIN IN 2 HOURS.
[2021-05-28 03:43] LABS: BASOPHILS ABSOLUTE AUTO 0.03 K/mm3 (0.00-0.23); BASOPHILS PERCENT AUTO 0 % (0-2); EOSINOPHILS ABSOLUTE AUTO 0.42 K/mm3 (0.00-0.68); EOSINOPHILS PERCENT AUTO 5 % (0-6); Hematocrit 36.2 % (33.0-51.0); Hemoglobin 11.6 g/dL (11.5-16.0); IMMATURE GRAN ABSOLUTE AUTO 0.05 K/mm3 (0.00-0.10); IMMATURE GRAN PERCENT AUTO 1 % (0-1); LYMPHOCYTES ABSOLUTE AUTO 1.46 K/mm3 (0.84-5.20); LYMPHOCYTES PERCENT AUTO 16 % (21-46); MONOCYTES PERCENT AUTO 7 % (4-13); Mean Corpuscular HGB 32.6 pg (26.0-34.0); Mean Corpuscular Volume 102 fL (80-100); Mean Platelet Volume 9.9 fL (9.1-12.4); NEUTROPHILS ABSOLUTE AUTO 6.34 K/mm3 (1.96-9.15); NEUTROPHILS PERCENT AUTO 71 % (41-73); Platelet Count 383 K/mm3 (150-400); RDW Coefficient Variation 14.1 % (11.7-14.2); RDW Standard Deviation 52.8 fL (35.1-46.3); Red Blood Cell Count 3.56 M/mm3 (3.80-5.20)
[2021-05-28 04:03] LABS: Albumin, Blood 2.1 g/dL (3.4-5.0); Albumin/Globulin Ratio 0.5 (0.8-1.8); Bilirubin, Total 0.4 mg/dL (0.1-1.0); Calcium, Blood 9.6 mg/dL (8.5-10.1); Creatinine, Blood 1.37 mg/dL (0.40-1.00); Globulin, Blood 4.5 g/dL (2.2-4.0); Magnesium, Blood 2.2 mg/dL (1.6-2.4); Phosphorus, Blood 2.5 mg/dL (2.5-4.9); Potassium, Blood 3.9 mmol/L (3.5-5.5); Total Protein, Blood 6.6 g/dL (6.4-8.2)
--- NOTE | 2021-05-28 07:00 | NUR ---
SHIFT SUMMARY VENT SETTINGS REMAIN AT PS 10/5 25% FIO2. PATIENT REMAINS ON NO SEDATION AND IS UNRESTRAINED. TF VIA OG TUBE RUNNING AT A GOAL OF 45 ML/HR. CERDA IN PLACE DRANING DARK YELLOW URINE WITH MINIMAL SEDIMENT. NO OTHER SIGNIFICANT CHANGES TO THE PATIENT'S STATUS SINCE LAST NURSE NOTE. WILL REPORT TO DAY SHIFT RN.
--- NOTE | 2021-05-28 12:06 | NUR ---
CARE NOTE PT REMAINS UNRESPONSIVE TO VERBAL STIMULI. MINIMAL RESPONSE TO PAINFUL STIMULI. SATURATIONS REMAIN AT 97% VIA VENT; PRESSURE SUPPORT 10/5. ISTRATE IN AT 1150 AND INSTRUCTED THIS NURSE TO ADMINISTER 10 UNITS SC OF INSULIN GLARGINE (BG 390 AND 15 UNITS OF HUMALOG GIVEN PER EMAR). FATHER AT BEDSIDE NOW. WILL CONTINUE TO MONITOR.
--- NOTE | 2021-05-28 12:10 | NUR ---
Visit to room, pt's father, Kem, is at the bedside. Dr. Lopez and Dr. Cantu made rounds while pt's father and this investment underwriter are present in room. Kem states family has been talking and they are aware of the very poor prognosis and anoxic brain injury. Kem had his questions answered by the MDs. Kem states Alyce, pt's dtr, will be visiting tomorrow. Asked Kem if they could have a family meeting to discuss goals of care. Kem states several famiy members will be in town and he will see if they can pick a time that they could come in tomorrow after. Current jordan of care is full code, full treatment at this time. Pt is still intubated at this time but is in the spontaneous mode per nursing. PC to continue to assist with family understanding of situation and advanced care planning.
--- NOTE | 2021-05-28 15:30 | NUR ---
CARE NOTE PT REMAINS UNRESPONSIVE TO VERBAL STIMULI BUT WILL CLENCH EYES CLOSED WHEN ATTEMPTING TO OPEN FOR ASSESSMENT OF SONI. DURING 1529 ORAL CARE, PT OPENED EYES BUT GAZE REMAINED DRIFTED UPWARDS. THIS NURSE SPOKE TO PATIENTS SIGNIFICANT OTHER DEEPTHI CASTRO SO TO UPDATE. SIGNIFICANT OTHER INFORMED THIS NURSE THAT HE WAS NOT PLEASED W/ DAUGHTER TESHA BEING THE MEDICAL DECISION MAKER. VENT PRESSURE SUPPORT SETTINGS REMAIN 12/5, FIO2 @ 25%. DURING ORAL CARE PT WILL EXPERIENCE EPISODE OF APNEA, THEN RESPIRATIONS RESUME TO 10-14 BREATHS/MIN. NO OTHER ACUTE CHANGES NOTED. WILL CONTINUE TO MONITOR.
--- NOTE | 2021-05-28 18:52 | NUR ---
CARE NOTE THIS NURSE VERIFIED ELEVATED BG OF 413 AT 1700 AND TREATED PER EMAR. THIS NURSE ATTEMPTED TO CONTACT DR RAY TWO TIMES AND WAS UNABLE TO REACH HIM. THIS NURSE ALSO ATTEMPTED TO CONTACT DR GARDNER AND WAS ALSO UNABLE TO REACH AND RELAY INORMATION OF ELEVATED BG OF 413. WILL PASS ON BG ELEVATION TO ONCOMING NURSE.
--- NOTE | 2021-05-28 18:58 | NUR ---
CARE NOTE THIS NURSE SPOKE W/ DR GARDNER AND REPORTED BG OF 413. INFORMATION PASSED ON DURING HAND OFF REPORT/
--- NOTE | 2021-05-28 19:12 | NUR ---
SHIFT SUMMARY PT REMAINS UNRESPONSIVE W/ EXCEPTION OF GRIMMACING UPON PAINFUL STIMULI. SPO2 REMAINS >95%. VENT PRESSURE SUPPORT SETTINGS REMAIN AT 12/5 AND FIO2 IS 25%. LEFT PERIPHERAL IV IS INFUSING FOR KVO OF NORMAL SALINE; LEFT AC IV IS PATENT/SALINE LOCKED. CERDA CATHETER IS PATENT AND DRAINING W/ GRAVITY. SBP RANGED 130'S-160'S DURING SHIFT, WHEN IN 160'S BP WAS TREATED PER EMAR. MEPILEX DRESSING IS PLACED ON COCCYX AND IS DRY/CLEAN/INTACT. CONTINUOUS TUBE FEEDING IS RUNNING AT GOAL RATE OF 55 ML. NO OTHER ACUTE CHANGES NOTED.
--- NOTE | 2021-05-28 23:00 | NUR ---
Changed TF tubing and hung new bottle of Jevity 1.2.
[2021-05-29 03:45] LABS: BASOPHILS ABSOLUTE AUTO 0.03 K/mm3 (0.00-0.23); BASOPHILS PERCENT AUTO 0 % (0-2); EOSINOPHILS ABSOLUTE AUTO 0.52 K/mm3 (0.00-0.68); EOSINOPHILS PERCENT AUTO 8 % (0-6); Hematocrit 37.2 % (33.0-51.0); Hemoglobin 11.7 g/dL (11.5-16.0); IMMATURE GRAN ABSOLUTE AUTO 0.06 K/mm3 (0.00-0.10); IMMATURE GRAN PERCENT AUTO 1 % (0-1); LYMPHOCYTES ABSOLUTE AUTO 1.56 K/mm3 (0.84-5.20); LYMPHOCYTES PERCENT AUTO 23 % (21-46); MONOCYTES ABSOLUTE AUTO 0.48 K/mm3 (0.16-1.47); MONOCYTES PERCENT AUTO 7 % (4-13); Mean Corpuscular HGB 32.4 pg (26.0-34.0); Mean Corpuscular HGB Conc 31.5 g/dL (31.5-36.5); Mean Corpuscular Volume 103 fL (80-100); NEUTROPHILS ABSOLUTE AUTO 4.27 K/mm3 (1.96-9.15); NEUTROPHILS PERCENT AUTO 62 % (41-73); Platelet Count 382 K/mm3 (150-400); RDW Coefficient Variation 14.1 % (11.7-14.2); RDW Standard Deviation 53.6 fL (35.1-46.3); Red Blood Cell Count 3.61 M/mm3 (3.80-5.20); White Blood Cell Count 6.92 K/mm3 (4.00-11.30)
[2021-05-29 04:04] LABS: Bun/Creatinine Ratio 41.8 (12.0-20.0); Calcium, Blood 9.9 mg/dL (8.5-10.1); Creatinine, Blood 1.22 mg/dL (0.40-1.00); Magnesium, Blood 1.9 mg/dL (1.6-2.4); Phosphorus, Blood 2.8 mg/dL (2.5-4.9); Potassium, Blood 4.2 mmol/L (3.5-5.5)
--- NOTE | 2021-05-29 05:30 | NUR ---
Shift Summary Pt has been unresponsive for the duration. A few episodes occured where the Pt spontaneously opened their eyes but were unable to track any movement and did not appear to focus on any subject. Spontaneous movement occured in the right foot, left arm, and neck at different times, however the Pt did not respond to any verbal stimuli, and only occasionally responded to painful stimuli. Vent settings remain unchanged, continuous tube feeding infusing at 55ml/hr. SBP remained elevated and peaked at 181, treated per EMAR. No other acute changes noted.
--- NOTE | 2021-05-29 07:29 | NUR ---
ASSUMPTION OF CARE NOTE PT REMAINS UNRESPONSIVE AND IS NOT SEDATED OR RESTRAINED. SHE RESPONDS W/ EYE CLENCHING TO PAINFUL STIMULI WELL DURING ORAL CARE. PT WILL SPONTANEOUSLY FLEX LEFT ARM. VENT PRESSURE SUPPORT SETTING REMAINS AT 10/5, FIO2 25% VIA SPONTANEOUS VENTILATION AND SPO2 IS 100% AT THIS TIME. CONTINUOUS TF RUNNING AT GOAL RATE OF 55 ML/HR. CERDA CATHETER IS IN PLACE AND DRAINING W/ GRAVITY. LEFT IV IS RUNNING AT 10 ML/HR. WILL CONTINUE TO MONITOR.
--- NOTE | 2021-05-29 09:00 | NUR ---
DR. DOWD UPDATED ON PATIENT STATUS. INFORMED THAT BLOOD SUGAR IN 300S, BUT THAT LONG ACTING INSULIN INCREASED FROM DAILY TO BID TODAY. INFORMED THAT PATIENT CONTINUES TO HAVE APNEIC/ AGONAL PERIODS OF BREATHING FROM TIME TO TIME. INFORMED THAT PATIENT HAS BEEN MOVING L ARM AROUND MORE AND ALMOST THROWING IT UP AND OUT. ORDER RECEIVED TO DECREASE PREDNISONE. NO OTHER ORDERS RECEIVED AT THIS TIME. WILL CONTINUE TO MONITOR.
--- NOTE | 2021-05-29 10:27 | NUR ---
ISTRATE UPDATED ON PATIENT STATUS. NO ORDERS RECEIVED AT THIS TIME. WILL CONTINUE TO MONITOR.
--- NOTE | 2021-05-29 12:34 | NUR ---
Received a call from Alyce this morning. Kem and Alyce are together on speaker phone. They are requesting that Meera be transitioned to comfort care. They do not want any further aggressive treatments. They will be coming in at 1400 today to visit and say goodbye to Meera. They will attempt to contact additional family by phone and will facetime with family once they are in Meera's room for any other family members to say goodbye. Alyce states that Kem, pt's S.O. should be allowed in to visit with Meera after family leaves today and he can visit again on Monday if Meera hasn't passed by then. Updated Dr. Lopez, nursing, PCU charge and RT. Plan will be to transition Meera to comfort care once family has had a chance to say goodbye this afternoon. Orders placed for comfort care per Dr. Lopez's request.
--- NOTE | 2021-05-29 13:14 | NUR ---
CALLED DR. RAY AND INFORMED OF BLOOD SUGAR IN HIGH 300S. COVERAGE GIVEN BY BARBARA PELAYO ORDERED. NO ORDERS RECEIVED AT THIS TIME. WILL CONTINUE TO MONITOR.
--- NOTE | 2021-05-29 13:38 | NUR ---
CARE NOTE PT REMAINS ON SPONTANEOUS VENTILATION W/ PRESSURE SUPPORT OF 10/5 AT 30% FIO2. PT IS NOT SEDATED AND REMAINS UNRESPONSIVE W/ EXCEPTION OF CLENCHING EYES TO PAINFUL STIMULI. THIS NURSE SPOKE W/ PALLIATIVE CARE NURSE RONEL PELAYO AND WAS UPDATED ON FAMILY DECISION TO MOVE PT TO COMFORT CARE MEASURES. NO OTHER ACUTE CHANGES NOTED. WILL CONTINUE TO MONITOR.
--- NOTE | 2021-05-29 15:06 | NUR ---
PATIENT'S DAUGHTER, TANNER, AND FATHER HAVE BEEN AT BEDSIDE SINCE AROUND 1400. PALLIATIVE CARE NURSE, RONEL NEW, HAS BEEN IN AND OUT SPEAKING WITH FAMILY. PATIENT CHANGED TO COMFORT CARE. FAMILY ASKED IF THEY NEED MORE TIME WITH PATIENT ON BREATHING MACHINE. FAMILY STATED THAT THEY WERE READY TO EXTUBATE. PATIENT EXTUBATED AT 1500. PATIENT APPEARS WITHOUT PAIN OR DISTRESS AT THIS TIME. FAMILY REMAINS AT SIDE. FAMILY INFORMED THAT WE WILL BE CHECKING ON PATIENT FREQUENTLY BUT TO LET US KNOW IF THEY NOTICE PATIENT UNCOMFORTABLE IN ANY WAY. FAMILY AGREES AND STATES THEY UNDERSTAND.
--- NOTE | 2021-05-29 16:20 | NUR ---
Multiple visits throughout this afternoon to pt and family. Pt transitioned to comfort care and extubated today. Pt's family at bedside during extubation. Alyce remains at bedside. Meera appears comfortable. Occasional movement of neck back and forth. Quietly snoring at this time. Provided emotional support. Provided list of local homes per her request. Alyce states that after she is done visiting this afternoon that staff can call Dedrick to allow him to visit with Meera. Nursing updated. Plan to move pt to medical floor. PC to follow.
--- NOTE | 2021-05-29 17:12 | NUR ---
COMFORT CARE NOTE PT PUT ON COMFORT CARE APPROX 1430. PT FATHER AND DAUGHTER AT BEDSIDE. ALICIA RN AND BOBBY RN ASSISTED THIS NURSE W/ MEDICATION FOR COMFORT MEASURES PER EMAR ORDERS. PT APPEARED RELAXED W/ NO SIGNS OF DISTRESS. WILL CONTINUE TO MONITOR.
--- NOTE | 2021-05-29 17:14 | NUR ---
COMFORT CARE NOTE PT DAUGHTER STILL AT BEDSIDE. PT APPEARS CALM, RESPIRATIONS ARE EVEN. NO GRIMMACING OR GAURDING NOTED. DAUGHTER STATED SHE WILL BE LEAVING SOON AND SIGNIFICANT OTHER DEEPTHI IS PERMITED TO VISIT. NO ACUTE CHANGES NOTED. WILL CONTINUE TO MONITOR.
--- NOTE | 2021-05-29 17:32 | NUR ---
SHIFT SUMMARY PT STILL REMAINS UNRESPONSIVE AND IS ON COMFORT CARE. RESPIRATIONS ARE EVEN AND UNLABORED. NO SIGN OF PAIN NOTED EVIDENCE OF ABSENCE OF GRIMMICING/GAURDING, LABORED RESPIRATIONS. PT SIGNIFICANT OTHER DEEPTHI NOW AT BEDSIDE. PT WILL BE TRANSPORTED TO 306. REPORT GIVEN TO JAYSEH PELAYO. PT DAUGHTER TESHA WILL BE CONTINUE TO BE UPDATED. WILL CONTINUE TO MONITOR UNTIL TRANSFER.
--- NOTE | 2021-05-29 17:45 | NUR ---
PATIENT'S S.O. CAME TO VISIT. S.O. UPSET ASKING WHERE PATIENT'S RING WAS. S.O. STATES "THAT IS A $2500 RING AND I AM GOING TO CALL THE HEAD GRINDER IF IT IS NOT FOUND". NURSE FOUND RING IN LOCKED CUPBOARD IN PATIENT ROOM ALONG WITH A LARGE BAG OF MEDICATIONS. DAUGHTER, TESHA, CALLED AND INFORMED THAT S.O. DEMANDING RING AND THAT HE DOES HAVE RECEIPT SHOWING THAT HE PURCHASED A RING. TESHA STATED THAT IF DESCRIPTION ON RECEIPT MATCHED THE RING THEN OKAY TO GIVE THE RING TO S.O. SECURITY CALLED AND NEHA CAME UP TO VERIFY WITH NURSE THAT RING MATCHED DESCRIPTION ON PAPER RECEIPT AND IT DID. RING GIVEN TO S.O.. DAUGHTER STATED THAT ANY OTHER BELONGINGS IN ROOM, INCLUDING MEDS IN LOCKED CUPBOARD, ARE TO ONLY GO WITH HER. DAUGHTER ALSO STATED THAT S.O. OKAY TO STAY HOWEVER LONG TONIGHT BUT AFTER TONIGHT PATIENT ONLY WANTS TO ALLOW 2 HOUR VISIT LIMITS EACH DAY TO S.O.. DAUGHTER WOULD LIKE TO BE CALLED WHEN S.O COMES AND LEAVES EACH DAY SO THEY DO NOT PASS EACH OTHER IN [place].
--- NOTE | 2021-05-29 18:32 | NUR ---
PATIENT TRANSFERRED TO MEDICAL FLOOR, ROOM 306. ONLY PATIENT BELONGINGS IN ROOM WERE A BAG OF PATIENT'S HOME MEDICATIONS. MEDICATIONS SENT WITH PATIENT.
--- NOTE | 2021-05-29 18:49 | NUR ---
SHIFT SUMMARY: PT TX TO MEDICAL FLOOR AT END OF SHIFT. REPORT RECEIVED FROM BARBARA PELAYO. PT NON RESPONSIVE UPON ARRIVAL. PT POSITIONED IN BED FOR COMFORT. ORAL CARE COMPLETED. PT HAD NO S/S OF PAIN/N/V/ANXIETY/SOB.
--- NOTE | 2021-05-30 02:02 | NUR ---
PATIENT RESTING COMFORTABLY
--- NOTE | 2021-05-30 07:25 | NUR ---
pATIENT REMAINED COMFORTABLE THROUGHOUT NIGHT. NO MEDICATIONS GIVEN. POSTIONED FOR COMFORT AND PROVIDED ORAL CARE.
--- NOTE | 2021-05-30 12:59 | NUR ---
Introduction: PT refered by Nursing Master Control Operator. Assessment: PT presented lying in bed with labored end of life breathing. PT family was present, daughter Alyce and sister Diane. PT family requested reading of scripture and prayer. Intervention: PT and family offered prayer and scripture reading. Outcome: PT and family received prayer and scripture reading. 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 Follow-Up: As needed or requested.
--- NOTE | 2021-05-30 15:44 | NUR ---
Spent time with pt's dtr, answering questions and offering emotional support. Alyce and Meera's sister have visited today. Strategic Alliances Manager support has been available to them throughout the day. Alyce is requesting assistance with FMLA paperwork. Will ask PC RN who is on tomorrow who has some experience with FMLA paperwork to follow up. Meera remains unresponsive at this time. She was snoring while this consumer loan underwriter was in the room. No distress was noted.
--- NOTE | 2021-05-30 17:21 | NUR ---
PATIENT NONRESPONSIVE. INFREQUENT APNEIC BREATHING. MEDICATED FOR ANXIETY AND SECRETIONS. PATIENT DOES NOT APPEAR TO BE IN ANY PAIN T/O SHIFT. NO GRIMACING EVEN WHEN TURNING. CERDA IN PLACE. DAUGHTER AND AUNT WERE IN TO VISIT FOR SHORT WHILE. NATIONAL GUARD PASTER WAS ALSO IN. RELATIVES REQUEST LAST RIGHT FROM [employer] HEAD SAW OPERATOR WITH NATIONAL GUARD CALLING LOCAL CHURCHES BUT UNABLE TO GET ANYONE TODAY. TM
--- NOTE | 2021-05-30 20:19 | NUR ---
PT RESTING COMFORTABLY AT THIS TIME. SNORING WITH NO VISUAL SIGNS OF DISCOMFORT OR ANXIETY. DEFERRED REPOSITIONING PT AT THIS TIME.
--- NOTE | 2021-05-31 04:09 | NUR ---
ORAL CARE PERFORMED AT THIS TIME - TOOTHETTE USED TO CLEAN SECRETIONS FROM MOUTH WITHOUT TOO MUCH DISTURBANCE OR AGITATION OF THE PATIENT. PT SHOWS IMPROVEMENT IN BREATHING AND APPEARS MORE RELAXED AT THIS TIME.
--- NOTE | 2021-05-31 04:41 | NUR ---
EXPANDING MACHINE OPERATOR SUMMARY PT REMAINED RESTING COMFORTABLY THROUGHOUT THE SHIFT. ORAL CARE PERFORMED ONCE WHEN PT HAD SOME INCREASE IN SECRETIONS CAUSING HER TO SHAKE HER HEAD. PT RETURNED TO RESTING AT THAT TIME. BREATHING HAS INCREASED TO APPROXIMATELY 30 BREATHS PER MINUTE, BUT WITHOUT ANY SIGNS OF DISTRESS. NO OTHER CONCERNS THIS SHIFT. COMFORT CARE TO CONTINUE.
--- NOTE | 2021-05-31 14:54 | NUR ---
Spiritual care visit conducted. Patient's SO, Dedrick is bedside. I visit with him while he cries, kisses and holds the patient. He talks about his wishes not being followed concerning the care of the patient (he beleives it is to soon for hospice and that he showed be the health care customer counter representative and not the daughter) and about the pain that he is trying to work through emotionally. I normalize his experience and provide therapeutic listening and provide prayer for the patient. He very abruptly gets up and says that he has a doctor appointment. I will continue to remain available to patient and family.
--- NOTE | 2021-06-01 05:26 | NUR ---
SHIFT SUMMARY COMFORT CARE. NONRESPONSIVE. NONVERBAL. KEEPS EYES CLOSED. MOVES HEAD SIDE TO SIDE. APPEARS RESTLESS THIS AM WILL GIVE ATIVAN. LABOURED BREATHING, GAVE 10MG ROXANOL 1X & PT RESTED COMFORTABLY. PO CARE GIVEN MULTIPLE TIMES. CATH CARE & REPOSITONED. WARM TO TOUCH, REMOVED BLANKET. CALL LIGHT IN REACH & WCTM.
[2021-06-01] MEDS ORDERED: acetaminophen PR (08:45)
[2021-06-01] MEDS ORDERED: ATROPINE SULFATE5 ML SL (08:46)
[2021-06-01] MEDS ORDERED: BISA10S PR (08:46)
[2021-06-01] MEDS ORDERED: IPRAT-ALBUT 0.5-3 ML INH (08:47)
[2021-06-01] MEDS ORDERED: ONDA4ODT MM (08:51)
[2021-06-01] MEDS ORDERED: MORPHINE S10 MG/1 M2 INH (08:51)
[2021-06-01] MEDS ORDERED: TRANSDERM-SCOP1 EAC1 TD (08:52)
--- NOTE | 2021-06-01 18:09 | NUR ---
completed fmla paterwork yesterday. Review of symptom management with nursing. pt slowly transitioning and unresponsive.
--- NOTE | 2021-06-01 18:13 | NUR ---
Pt is resting and repositioning done every 2 hours . Morphine sulfate for pain and air hunger. Awaiting discharge to hospice tomorrow. Continue to monitor
--- NOTE | 2021-06-02 05:45 | NUR ---
SHIFT SUMMARY COMFORT CARE. UNRESPONSIVE. NONVERBAL. DID OPEN EYES TONIGHT. BREATHING MORE LABOURED, MEDICATED 3X c ROXANOL PER ORDERS. REPOSITIONED, SUCTION PO CARE PROVIDED. PLAN TO DC HOME ON HOSPICE. WCTM.
--- NOTE | 2021-06-02 09:16 | NUR ---
PATIENT COMFORT: PATIENT HAD ELEVATED RESPIRATIONS THIS MORNING (AROUND 24 BPM). MEDICATED PER PRNS FOR COMFORT. PATIENT RESPIRATIONS ARE NOW AROUND 20BPM. PATIENT APPEARS COMFORTABLE. LIMBS AND FACE ARE CALM. UNABLE TO ROUSE PATIENT THIS MORNING WITH VERBAL CUES. PATIENT OPENED HER EYES DURING REPOSITIONING. MESSAGE LEFT FOR THE PATIENT'S DAUGHTER TESHA RE: [employer] PAPERWORK. IT IS AT THE PATIENT'S BEDSIDE.
--- NOTE | 2021-06-02 11:09 | NUR ---
FAMILY DECISION MAKERS: THE PATIENT'S DAUGHTER TESHA CALLED THE RN BACK ABOUT THE [place] PAPERWORK. SHE MADE IT CLEAR THAT THE ONLY INDIVIDUALS ALLOWED TO MAKE DECISIONS IN REGARDS TO THE PATIENT IS HERSELF AND THE FATHER, CLYDE. SHE ALSO REITERATED THAT BETWEEN HER AND THE FATHER, THEY ARE UNABLE TO CARE FOR THE PATIENT AT HOME. THIS INFORMATION WAS RELAYED TO DACIA HUERTA.
--- NOTE | 2021-06-02 11:40 | NUR ---
Pt respirations changing and s/s of prgressing toward being eminent
--- NOTE | 2021-06-02 18:05 | NUR ---
VISITORS: RECEIVED PHONE CALL FROM THE PATIENT'S DAUGHTER. SHE WANTED TO CLARIFY THAT IT IS FINE WITH HER AND THE PATIENT'S FATHER THAT THE PATIENT'S SIGNIFICANT OTHER BE ALLOWED TO VISIT. HOWEVER, SHE DOES WANT TO MAKE SURE THAT IT IS CLEAR TO THE SIGNIFICANT OTHER THAT HE MUST TAKE TURNS WITH VISITING AT THE HOSPITAL TO ALLOW FOR OTHER FAMILY TO VISIT. WILL ALSO PASS THIS ON TO TRANSFORMATION LEAD RN.
--- NOTE | 2021-06-02 19:13 | NUR ---
END OF SHIFT SUMMARY: PATIENT PAIN AND COMFORT CONTROLLED THROUGHOUT THE SHIFT. PATIENT MEDICATED FOR AIR HUNGER, DISCOMFORT, AND BEING WARM TO THE TOUCH. PATIENT PROVIDED WITH COOL CLOTHS AND A FAN TO ALSO ASSIST WITH COMFORT. PATIENT TOLERATED REPOSITIONING WELL. PATIENT'S DAUGHTER WAS ABLE TO COME AND VISIT WITH THE PATIENT. SEE NURSE'S NOTES FOR UPDATES ABOUT THE DAUGHTER'S WISHES AND VISITORS.
--- NOTE | 2021-06-02 22:12 | NUR ---
UPON ENTERING PT. ROOM. FOUND PT. UNRESPONSIVE IN BED @2140, NO RESPIRATIONS, NO PULSE, NO HEART OR BREATH SOUNDS AUSCULTATED. NO CODE CALLED PT. COMFORT CARE/DNR. VERIFICATION DONE WITH NATIVIDAD HILL RN, CREAM RIPENER KELECHI CHOUDHARY. HOSPITALIST DR. COLÓN NOTIFIED AND FAMILY CALLED, MADE AWARE. PER PT. DAUGHTER TESHA, FAMILY WILL NOT BE ABLE TO COME IN. INDWELLING CATHETER AND IV ACCESS DEVICES IN L AND R ARMS REMOVED. POSTMORTEM CARE PERFORMED. NO BELONGINGS IN THE ROOM. AWAITING TRANSPORTATION BY HOME.
== END 2021-06-02 21:40 | DRG 917 ==
LOC: ER 21:58 → ERHOLD 23:49 → PCU 23:49 → MEDS 05-29 18:20
PROVIDERS: Emergency Medicine; Family Medicine; Internal Medicine; Internal Medicine Critical Care Medicine; Internal Medicine Infectious Disease; Student in an Organized Health Care Education/Training Program; ADMIT Hospitalist
PROC: 0BH18EZ Insertion of Endotracheal Airway into Trachea, Via Natural or Artificial Opening Endoscopic (ICD-10-PCS; principal; 2021-05-20)
PROC: 5A1955Z Respiratory Ventilation, Greater than 96 Consecutive Hours (ICD-10-PCS; 2021-05-20)
DX: T43.622A Poisoning by amphetamines, intentional self-harm, initial encounter (principal); J96.01 Acute respiratory failure with hypoxia; B37.7 Candidal sepsis; G92 Toxic encephalopathy; Z94.4 Liver transplant status; T86.12 Kidney transplant failure; E87.1 Hypo-osmolality and hyponatremia; G93.1 Anoxic brain damage, not elsewhere classified; Z51.5 Encounter for palliative care; N30.90 Cystitis, unspecified without hematuria; Z20.822 Contact with and (suspected) exposure to COVID-19; Z66 Do not resuscitate; K21.9 Gastro-esophageal reflux disease without esophagitis; E78.5 Hyperlipidemia, unspecified; N18.30 Chronic kidney disease, stage 3 unspecified; K58.9 Irritable bowel syndrome, unspecified; Z88.8 Allergy status to other drugs, medicaments and biological substances; Z98.51 Tubal ligation status; Z90.49 Acquired absence of other specified parts of digestive tract; Z98.890 Other specified postprocedural states; Z68.32 Body mass index [BMI] 32.0-32.9, adult; E11.22 Type 2 diabetes mellitus with diabetic chronic kidney disease; I12.9 Hypertensive chronic kidney disease with stage 1 through stage 4 chronic kidney disease, or unspecified chronic kidney disease; Z78.1 Physical restraint status
CPT/HCPCS: 31500; 36415; 36600; 36680; 51702; 70450; 71045; 80047; 80048; 80053; 80061; 80069; 80197; 80202; 81001; 82140; 82803; 82947; 83036; 83605; 83735; 83880; 84100; 84145; 84443; 84484; 85014; 85025; 85027; 86140; 87040; 87070; 87086; 87106; 87205; 93005; 93010; 93306; 94002; 94003; 94640; 94762; 95819; 99291-25; A9270; C9113; J0360; J0696; J0713; J1450; J1650; J1815; J2060; J2250; J2270; J2543; J3010; J3370; J7030; J7040; J7050; J7500; J7507; J7512; U0004